=== PATIENT | female | born 1990 | race Caucasian/White ===

== ENCOUNTER 2018-05-31 16:15 | Emergency (ER) | payer BC, OTHER, SELFPAY ==
--- OUTSIDE RECORDS SUMMARY | 2018-05-31 16:17 | XMS REPORT | Summary of Care ---
:1990 Author Name Rekha Stone Address Unavailable Unavailable , Care Team Providers Name Role Phone Rekha Stone Unavailable Unavailable Functional Status Name Dates Details Functional status health issues are not documented Status: Name Dates Details Cognitive status health issues are not documented Status: Problems Name Dates Details Pain of left hand (729.5, M79.642) Status: Active Closed displaced fracture of shaft of fifth metacarpal bone of left hand, initial encounter (815.03, S62.327A) Status: Active Sprain of left wrist, initial encounter (842.00, S63.502A) Status: Active Closed fracture of pelvis and anterior inferior iliac spine, right, initial encounter (808.41, S32.391A) Status: Active Medications Name Dates Details Medications not documented Allergies and Adverse Reactions Name Dates Details No Known Drug Allergies (Allergy) Status: Active Procedures Procedure Dates Details History of section Completed Immunization Name Dates Details Immunizations not documented Family History Name Dates Details Family history of hypertension (V17.49, Z82.49) Status: Active Family history of malignant neoplasm (V16.9, Z80.9) Status: Active Family history of arthritis (V17.7, Z82.61) Status: Active Name Dates Details Family history of hypertension (V17.49, Z82.49) Status: Active Family history of malignant neoplasm (V16.9, Z80.9) Status: Active Family history of arthritis (V17.7, Z82.61) Status: Active Social History Name Dates Details Unknown if ever smoked Vital Signs Date Test Result Details No Known Vitals to report Results Date Description Value Details Results not documented Plan of Care Name Dates Details Planned Observations Planned Goals not documented Instructions Name Dates Details Instructions not documented Encounters Appointment; WOODY JONES M.D. On: 26-Apr-2017 11:00 Encounter Diagnosis: Problem not documented Appointment; CARLA GLEASON P.A. On: 27-Apr-2017 8:00 Encounter Diagnosis: Problem not documented Appointment; WOODY JONES M.D. On: 03-May-2017 10:30 Encounter Diagnosis: Problem not documented Appointment; CARLINE VAZQUEZ M.D. On: 29-May-2017 11:00 Encounter Diagnosis: Problem not documented Appointment; WOODY JONES M.D. On: 31-May-2017 10:30 Encounter Diagnosis: Problem not documented
[2018-05-31 19:30] LABS: Absolute Lymphocytes (CBC) 1.5 K/uL (0.7-4.9); Absolute Monocytes 0.5 K/uL (0.1-1.3); Basophils % 0.6 % (0-1.3); Eosinophils % 0.7 % (0-4.4); Hematocrit 41.6 % (36.0-45.0); Lymphocytes % 21.4 % (15.3-44.8); MPV 8.2 fL (7.6-11.3); Monocytes % 7.6 % (3.3-12.3); RBC Red Blood Cell Count 4.72 M/uL (3.86-4.86)
[2018-05-31 19:35] LABS: BUN Blood Urea Nitrogen 8 mg/dL (7-18); Bicarbonate 28 mmol/L (21-32); Glucose Level 96 mg/dL (74-106); Potassium 3.5 mmol/L (3.5-5.1); Sodium Level 140 mmol/L (136-145)
[2018-05-31 20:07] LABS: Urine Blood NEGATIVE (NEG); Urine Glucose NEGATIVE (NEG); Urine Protein 1+ (NEG); Urine pH 7.5 (5.0-7.0)
--- NOTE | 2018-05-31 20:13 | ER ---
Nurse's Notes [facility] Name: Laura Feldman Age: 27 yrs Sex: Female : 1990 Arrival Date: 05/31/2018 Time: 16:17 Bed 24 Private MD: Diagnosis: Encounter for screening, unspecified Presentation: 05/31 16:30 Presenting complaint: Patient states: HTN 128/84, bilateral hand swelling, "pins and dm5 needles in my feet" x 3 days. Transition of care: patient was not received from another setting of care. Onset of symptoms was May 28, 2018. Care prior to arrival: None. 16:30 Method Of Arrival: Ambulatory dm5 16:30 Acuity: ELLI 3 dm5 18:30 Risk Assessment: Do you want to hurt yourself or someone else? Patient reports no ca1 desire to harm self or others. 18:30 Initial Sepsis Screen: Does the patient meet any 2 criteria? No. Patient's initial ca1 sepsis screen is negative. Does the patient have a suspected source of infection? No. Patient's initial sepsis screen is negative. Triage Assessment: 16:33 General: Appears in no apparent distress. comfortable, well developed, Behavior is dm5 calm, cooperative, appropriate for age. Pain: Denies pain. Neuro: Level of Consciousness is awake, alert, obeys commands, Oriented to person, place, time, situation, Gait is steady. Respiratory: Respiratory effort is even, unlabored, Respiratory pattern is regular, symmetrical. Derm: Skin is pink, warm \\T\\ dry. 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 - Social history:: Smoking status: Patient/guardian denies using tobacco. - Ebola Screening: : No symptoms or risks identified at this time. Screenin:20 Abuse screen: Denies threats or abuse. Denies injuries from another. Nutritional ca1 screening: No deficits noted. Tuberculosis screening: No symptoms or risk factors identified. Fall Risk None identified. Assessment: 18:20 General: Appears in no apparent distress. comfortable, Behavior is calm, cooperative, ca1 appropriate for age. Pain: Denies pain. Neuro: Level of Consciousness is awake, alert, obeys commands, Oriented to person, place, time, situation. Cardiovascular: Heart tones S1 S2 present Capillary refill < 3 seconds Patient's skin is warm and dry. Respiratory: Airway is patent Respiratory effort is even, unlabored, Respiratory pattern is regular, symmetrical, Breath sounds are clear bilaterally. GI: Abdomen is flat, non-distended, Bowel sounds present X 4 quads. GI: Abd is soft and non tender X 4 quads. : No signs and/or symptoms were reported regarding the genitourinary system. EENT: No signs and/or symptoms were reported regarding the EENT system. Derm: Skin is intact, is healthy with good turgor, Skin is pink, warm \\T\\ dry. Musculoskeletal: Circulation, motion, and sensation intact. Capillary refill < 3 seconds. 19:24 Reassessment: Patient appears in no apparent distress at this time. Patient and/or ca1 family updated on plan of care and expected duration. Pain level reassessed. Patient is alert, oriented x 3, equal unlabored respirations, skin warm/dry/pink. Vital Signs: 16:32 BP 141 / 89; Pulse 84; Resp 16; Temp 98.6; Pulse Ox 98% ; Weight 49.9 kg; Height 5 ft. dm5 5 in. (165.10 cm); Pain 0/10; 19:24 BP 106 / 74; Pulse 87; Resp 18; Pulse Ox 100% on R/A; ca1 16:32 Body Mass Index 18.30 (49.90 kg, 165.10 cm) dm5 ED Course: 16:17 Patient arrived in ED. as 16:30 Triage completed. dm5 16:32 Arm band placed on Patient placed in waiting room, Patient notified of wait time. dm5 18:15 Adam Pitts PA is PHCP. cp 18:15 Adam Barney MD is Attending Physician. cp 18:20 Patient has correct armband on for positive identification. Bed in low position. Call ca1 light in reach. Side rails up X 1. Pulse ox on. NIBP on. 18:33 Morelia Velazquez, RN is Primary Nurse. ca1 19:11 Missed attempt(s): 22 gauge in right antecubital area. lt1 19:11 Inserted saline lock: 22 gauge in left antecubital area, using aseptic technique. lt1 19:12 Initial lab(s) drawn, by me, sent to lab. lt1 20:22 No provider procedures requiring assistance completed. IV discontinued, intact, mg2 bleeding controlled, No redness/swelling at site. Pressure dressing applied. Administered Medications: No medications were administered Outcome: 20:12 Discharge ordered by MD. cp 20:22 Discharged to home ambulatory, with family. mg2 20:22 Condition: stable 20:22 Discharge instructions given to patient, Instructed on discharge instructions, follow up and referral plans. Demonstrated understanding of instructions, follow-up care. 20:23 Patient left the ED. mg2 Signatures: Donna Saldivar RN RN dm5 Katy Louis Corey, PA PA cp Zeke Aldridge RN RN mg2 Morelia Velazquez RN RN ca1 Rosalina Kenyon lt1 Corrections: (The following items were deleted from the chart) 16:32 16:30 Presenting complaint: Patient states: HTN, bilateral hand swelling, "pins and dm5 needles in my feet" x 3 days. dm5
--- NOTE | 2018-05-31 20:13 | EDPHYS ---
Physician Documentation [facility] Name: Laura Feldman Age: 27 yrs Sex: Female : 1990 Arrival Date: 05/31/2018 Time: 16:17 Bed 24 Private MD: ED Physician Adam Barney HPI: 05/31 19:00 This 27 yrs old Female presents to ER via Ambulatory with complaints of High cp Blood Pressure, Hand Swelling. 19:00 The patient or guardian complains of swelling, sensation of "pins and needles". The cp complaints affect the right hand, left hand. Context: resulted from unknown cause. 19:00 Onset: The symptoms/episode began/occurred 3 day(s) ago. cp 19:00 Treatment prior to arrival includes: no previous treatment. Associated signs and cp symptoms: Pertinent negatives: decreased range of motion, fever, pain, vomiting, injury. Severity of symptoms: in the emergency department the symptoms have improved, mildly. 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 - Social history:: Smoking status: Patient/guardian denies using tobacco. - Ebola Screening: : No symptoms or risks identified at this time. ROS: 19:05 Constitutional: Negative for body aches, chills, fever, poor PO intake. cp 19:05 Eyes: Negative for injury, pain, redness, and discharge. cp 19:05 ENT: Negative for drainage from ear(s), ear pain, sore throat, difficulty swallowing, difficulty handling secretions. 19:05 Neck: Negative for pain with movement, pain at rest, stiffness. 19:05 Cardiovascular: Negative for chest pain, edema, palpitations. 19:05 Respiratory: Negative for cough, shortness of breath, wheezing. 19:05 Abdomen/GI: Negative for abdominal pain, nausea, vomiting, and diarrhea, constipation, black/tarry stool, rectal bleeding. 19:05 Back: Negative for pain at rest, pain with movement. 19:05 : Negative for urinary symptoms. 19:05 MS/extremity: Positive for swelling, of the right hand and left hand, sensation of "pin and needles", Negative for injury or acute deformity, decreased range of motion, erythema, paresthesias. 19:05 Skin: Negative for cellulitis, rash. 19:05 Neuro: Negative for altered mental status, dizziness, headache, numbness, weakness. 19:05 All other systems are negative. Exam: 19:12 Constitutional: The patient appears in no acute distress, alert, awake, non-toxic, well cp developed, well nourished. 19:12 Head/Face: Normocephalic, atraumatic. cp 19:12 Eyes: Periorbital structures: appear normal, Conjunctiva: normal, no exudate, no injection, Sclera: no appreciated abnormality, Lids and lashes: appear normal, bilaterally. 19:12 ENT: External ear(s): are unremarkable, Nose: is normal, Mouth: Lips: moist, Oral mucosa: pink and intact, moist, Posterior pharynx: is normal, airway is patent, no erythema, no exudate. 19:12 Neck: ROM/movement: is normal, is supple, without pain, no range of motions limitations, no meningismus, no nuchal rigidity. 19:12 Chest/axilla: Inspection: normal, Palpation: is normal, no crepitus, no tenderness. 19:12 Cardiovascular: Rate: normal, Rhythm: regular, Pulses: Pulses are 2+ in right radial artery and left radial artery. 19:12 Respiratory: the patient does not display signs of respiratory distress, Respirations: normal, no use of accessory muscles, no retractions, no splinting, no tachypnea, labored breathing, is not present, Breath sounds: are clear throughout, no decreased breath sounds, no stridor, no wheezing. 19:12 Abdomen/GI: Inspection: abdomen appears normal, Palpation: abdomen is soft and non-tender, in all quadrants. 19:12 Back: pain, is absent, ROM is normal. 19:12 Skin: cellulitis, is not appreciated, no rash present. 19:12 Neuro: Orientation: to person, place \\T\\ time. Mentation: is normal, Cerebellar function: is grossly normal, Motor: moves all fours, strength is normal, Sensation: no obvious gross deficits. 19:12 Musculoskeletal/extremity: Extremities: all appear grossly normal, with no appreciated cp pain with palpation. Vital Signs: 16:32 BP 141 / 89; Pulse 84; Resp 16; Temp 98.6; Pulse Ox 98% ; Weight 49.9 kg; Height 5 ft. dm5 5 in. (165.10 cm); Pain 0/10; 19:24 BP 106 / 74; Pulse 87; Resp 18; Pulse Ox 100% on R/A; ca1 16:32 Body Mass Index 18.30 (49.90 kg, 165.10 cm) dm5 MDM: 18:15 Patient medically screened. cp 19:35 Differential diagnosis: electrolyte abnormality, paresthesias. cp 20:11 Data reviewed: vital signs, nurses notes, lab test result(s), and as a result, I will cp discharge patient. 20:11 Counseling: I had a detailed discussion with the patient and/or guardian regarding: the cp historical points, exam findings, and any diagnostic results supporting the discharge/admit diagnosis, lab results, to return to the emergency department if symptoms worsen or persist or if there are any questions or concerns that arise at home. 05/31 18:42 Order name: BMP; Complete Time: 20:09 cp 05/31 18:42 Order name: CBC with Diff; Complete Time: 20:09 cp 05/31 18:42 Order name: Urine Dipstick-Ancillary (obtain specimen); Complete Time: 19:32 cp 05/31 18:42 Order name: Urine Test (obtain specimen); Complete Time: 19:32 cp 05/31 19:34 Order name: Urine Dipstick--Ancillary (enter results); Complete Time: 20:09 vt5 05/31 19:34 Order name: Urine --Ancillary (enter results); Complete Time: 20:09 [facility] 05/31 18:50 Order name: IV Saline Lock; Complete Time: 19:13 ca1 Administered Medications: No medications were administered Disposition: 05/31/18 20:12 Discharged to Home. Impression: Encounter for screening, unspecified. - Condition is Stable. - Medication Reconciliation Form, Thank You Letter, Antibiotic Education, Prescription Opioid Use form. - Follow up: Private Physician; When: 2 - 3 days; Reason: Recheck today's complaints. - Problem is new. - Symptoms have improved. Addendum: 06/03/2018 09:05 Co-signature as Attending Physician, Adam Barney MD I agree with the assessment and c cary plan of care. Signatures: Dispatcher [employer] Donna Kumar RN RN dm5 Adam Barney MD MD cha Page, Corey, MIKALA PA cp Zeke Aldridge RN RN mg2 Morelia Velazquez RN RN ca1 Corrections: (The following items were deleted from the chart) 05/31 20:23 20:12 05/31/2018 20:12 Discharged to Home. Impression: Encounter for screening, mg2 unspecified. Condition is Stable. Forms are Medication Reconciliation Form, Thank You Letter, Antibiotic Education, Prescription Opioid Use. Follow up: Private Physician; When: 2 - 3 days; Reason: Recheck today's complaints. Problem is new. Symptoms have improved. cp
[2018-05-31 21:08] VITALS: TEMP 98.6
[2018-05-31 21:10] VITALS: BP 106/74; O2SAT 100
== END 2018-05-31 20:23 | disposition home or self-care (01) ==
LOC: ER 16:15
DX: Z13.9 Encounter for screening, unspecified (principal)
CPT/HCPCS: 36415; 80048; 81003; 81025; 85025; 99283

== ENCOUNTER 2019-05-30 18:03 | Emergency (ER) | payer OTHER ==
--- OUTSIDE RECORDS SUMMARY | 2019-05-30 18:05 | XMS REPORT | Summary of Care ---
:1990 Author Name NIDA WHITESIDE M.D. Address Unavailable Unavailable , Care Team Providers Name Role Phone Unavailable Unavailable Unavailable Functional Status Name Dates Details [...] Encounter Diagnosis: Problem not documented Appointment; CARLA GELASON P.A. On: 27-Apr-2017 8:00 Encounter Diagnosis: Problem not documented Appointment; WOODY JONES M.D. On: 03-May-2017 10:30 Encounter Diagnosis: Problem not documented Appointment; CARLINE VAZQUEZ M.D. On: 29-May-2017 11:00 Encounter Diagnosis: Problem not documented Appointment; WOODY JONES M.D. On: 31-May-2017 10:30 Encounter Diagnosis: Problem not documented
[2019-05-30 19:11] LABS: Urine Blood NEGATIVE (NEG); Urine Glucose NEGATIVE (NEG); Urine Protein NEGATIVE (NEG)
--- NOTE | 2019-05-30 19:24 | ER ---
Nurse's Notes [facility] Name: Laura Feldman Age: 28 yrs Sex: Female : 1990 Arrival Date: 05/30/2019 Time: 18:13 Bed 27 Private MD: Diagnosis: Urinary tract infection, site not specified Presentation: 05/30 18:20 Presenting complaint: Patient states: Burning urination for the past 3 days. Denies aj1 fever. Transition of care: patient was not received from another setting of care. Onset of symptoms was May 2019. Risk Assessment: Do you want to hurt yourself or someone else? Patient reports no desire to harm self or others. Initial Sepsis Screen: Does the patient meet any 2 criteria? No. Patient's initial sepsis screen is negative. Does the patient have a suspected source of infection? Yes: Dysuria/Frequency/Urgency/UTI. Care prior to arrival: None. 18:20 Method Of Arrival: Ambulatory aj1 18:20 Acuity: ELLI 4 aj1 Triage Assessment: 18:22 General: Appears in no apparent distress. comfortable, Behavior is calm, cooperative, aj1 appropriate for age. Pain: Denies pain. Neuro: Level of Consciousness is awake, alert, obeys commands. Cardiovascular: Patient's skin is warm and dry. Respiratory: Airway is patent Respiratory effort is even, unlabored, Respiratory pattern is regular, symmetrical. GI:. : Reports burning with urination. 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 - Coronavirus screen:: The patient has NOT traveled to [place], [place], or [place] in the past 14 days. - Social history:: Smoking status: Patient/guardian denies using tobacco. - Ebola Screening: : Patient denies travel to an Ebola-affected area in the 21 days before illness onset. Screenin:25 Abuse screen: Denies threats or abuse. Nutritional screening: No deficits noted. vc Tuberculosis screening: No symptoms or risk factors identified. Fall Risk None identified. Assessment: 18:30 General: Appears in no apparent distress. uncomfortable, Behavior is calm, cooperative, vc appropriate for age. Pain: Complains of pain in lower back and lower abdominal. Neuro: Level of Consciousness is awake, alert, obeys commands, Oriented to person, place, time. Cardiovascular: Patient's skin is warm and dry. Respiratory: Respiratory effort is even, unlabored, Respiratory pattern is regular, symmetrical. GI: No signs and/or symptoms were reported involving the gastrointestinal system. : Reports burning with urination. EENT: No deficits noted. Derm: Skin temperature is warm. Musculoskeletal: Circulation, motion, and sensation intact. Range of motion: intact in all extremities. 19:30 Reassessment: Patient and/or family updated on plan of care and expected duration. Pain vc level reassessed. Patient is alert, oriented x 3, equal unlabored respirations, skin warm/dry/pink. Patient states symptoms have improved. Vital Signs: 18:22 BP 126 / 83; Pulse 73; Resp 16; Temp 98.3; Pulse Ox 100% on R/A; Weight 49.9 kg (R); aj1 Height 5 ft. 5 in. (165.10 cm) (R); Pain 0/10; 18:22 Body Mass Index 18.30 (49.90 kg, 165.10 cm) aj1 ED Course: 18:13 Patient arrived in ED. as 18:22 Triage completed. aj1 18:22 Arm band placed on Patient placed in waiting room, Patient notified of wait time. aj1 18:25 Patient has correct armband on for positive identification. Bed in low position. Call vc light in reach. 18:42 Neftali Finley PA is PHCP. [facility] 18:42 Kim Dave MD is Attending Physician. [facility] 18:49 Radha Padgett, GERARDO is Primary Nurse. vc 19:40 No provider procedures requiring assistance completed. Patient did not have IV access vc during this emergency room visit. Administered Medications: No medications were administered Outcome: 18:40 Discharged to home ambulatory, with family. vc 18:40 Condition: good 18:40 Discharge instructions given to patient, Instructed on discharge instructions, follow up and referral plans. medication usage, Demonstrated understanding of instructions, follow-up care, medications, Prescriptions given X 1. 19:23 Discharge ordered by MD. [place] 19:43 Patient left the ED. vc Addendum: 06/01/2019 07:33 Addendum: Culture Results: Positive urine culture. No further action required. Bacteria e b sensitive to prescribed antibiotic. Signatures: Pauline Brown RN RN aj1 Neftali Finley PA PA jmm Martinez, Amelia as Botello, Elizabeth eb Calcote, Vanessa, RN RN vc
--- NOTE | 2019-05-30 19:24 | EDPHYS ---
Physician Documentation [facility] Name: Laura Feldman Age: 28 yrs Sex: Female : 1990 Arrival Date: 05/30/2019 Time: 18:13 Bed 27 Private MD: ED Physician Kim Dave HPI: 05/30 19:20 This 28 yrs old Female presents to ER via Ambulatory with complaints of jmm Urinary Problem. 19:20 The patient presents with urinary symptoms, dysuria, frequency. Onset: The jmm symptoms/episode began/occurred gradually, 3 day(s) ago. Modifying factors: The symptoms are alleviated by nothing, the symptoms are aggravated by nothing. Associated signs and symptoms: Pertinent positives: cramping, Pertinent negatives: diarrhea, fever, vomiting. 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 - Coronavirus screen:: The patient has NOT traveled to [place], [place], or [place] in the past 14 days. - Social history:: Smoking status: Patient/guardian denies using tobacco. - Ebola Screening: : Patient denies travel to an Ebola-affected area in the 21 days before illness onset. ROS: 19:20 Constitutional: Negative for fever, chills, and weight loss, Eyes: Negative for injury, jmm pain, redness, and discharge, ENT: Negative for injury, pain, and discharge, Cardiovascular: Negative for chest pain, palpitations, and edema, Respiratory: Negative for shortness of breath, cough, wheezing, and pleuritic chest pain, Abdomen/GI: Negative for abdominal pain, nausea, vomiting, diarrhea, and constipation. 19:20 : Positive for urinary symptoms. 19:20 All other systems are negative. Exam: 19:20 Constitutional: This is a well developed, well nourished patient who is awake, alert, jmm and in no acute distress. Head/Face: atraumatic. Eyes: EOMI, no conjunctival erythema appreciated ENT: Moist Mucus Membranes Neck: Trachea midline, Supple Chest/axilla: Normal chest wall appearance and motion. Cardiovascular: Regular rate and rhythm. No edema appreciated Respiratory: Normal respirations, no respiratory distress appreciated 19:20 Skin: General appearance color normal MS/ Extremity: Moves all extremities, no obvious deformities appreciated, no edema noted to the lower extremities Neuro: Awake and alert, normal gait Psych: Behavior is normal, Mood is normal, Patient is cooperative and pleasant 19:20 Abdomen/GI: Inspection: abdomen appears normal, Bowel sounds: normal, Palpation: abdomen is soft and non-tender. 19:20 Back: CVA tenderness, is absent. Vital Signs: 18:22 BP 126 / 83; Pulse 73; Resp 16; Temp 98.3; Pulse Ox 100% on R/A; Weight 49.9 kg (R); aj1 Height 5 ft. 5 in. (165.10 cm) (R); Pain 0/10; 18:22 Body Mass Index 18.30 (49.90 kg, 165.10 cm) aj1 MDM: 19:07 Patient medically screened. can 19:18 Data reviewed: vital signs, nurses notes. can 19:21 Data reviewed: lab test result(s). Counseling: I had a detailed discussion with the [facility] patient and/or guardian regarding: the historical points, exam findings, and any diagnostic results supporting the discharge/admit diagnosis, lab results, the need for outpatient follow up, to return to the emergency department if symptoms worsen or persist or if there are any questions or concerns that arise at home. ED course: Patient is alert and non toxic in appearance. No clinical signs of pyelonephrosis. patient given strict return precautions. patient understood and agrees with the plan of care. . 05/30 19:08 Order name: Urine Dipstick--Ancillary (enter results); Complete Time: 19:24 sp 05/30 19:08 Order name: Urine --Ancillary (enter results); Complete Time: 19:24 sp 05/30 19:15 Order name: Urine Culture bb 05/30 19:15 Order name: Urine Culture [facility] Administered Medications: No medications were administered Disposition: 05/30/19 19:23 Discharged to Home. Impression: Urinary tract infection, site not specified. - Condition is Stable. - Discharge Instructions: Urinary Tract Infection, Adult. - Prescriptions for Cephalexin 500 mg Oral Capsule - take 1 capsule by ORAL route every 12 hours for 10 days; 20 capsule. - Medication Reconciliation Form, Thank You Letter, Antibiotic Education, Prescription Opioid Use form. - Follow up: Private Physician; When: 2 - 3 days; Reason: Recheck today's complaints, Continuance of care, Re-evaluation by your physician. Addendum: 06/02/2019 18:53 Co-signature as Attending Physician, Kim Dave MD. m a2 Signatures: Dispatcher [employer] EDPauline Cantrell RN RN aj1 Neftali Finley PA PA jmm Alzahri, Mohammad, MD MD ma2 Radha Padgett RN RN vc Corrections: (The following items were deleted from the chart) 05/30 19:43 19:23 05/30/2019 19:23 Discharged to Home. Impression: Urinary tract infection, site vc not specified. Condition is Stable. Forms are Medication Reconciliation Form, Thank You Letter, Antibiotic Education, Prescription Opioid Use. Follow up: Private Physician; When: 2 - 3 days; Reason: Recheck today's complaints, Continuance of care, Re-evaluation by your physician. [facility]
[2019-05-30 19:50] VITALS: BP 126/83; TEMP 98.3; O2SAT 100
== END 2019-05-30 19:43 | disposition home or self-care (01) ==
LOC: ER 18:03
DX: N39.0 Urinary tract infection, site not specified (principal)
CPT/HCPCS: 81003; 81025; 87077; 87086; 87088; 87186; 99282

== ENCOUNTER 2020-04-23 16:15 | Emergency (ER) | payer OTHER ==
--- OUTSIDE RECORDS SUMMARY | 2020-04-23 16:17 | XMS REPORT | Summary of Care ---
:1990 Author Organization [facility] - [facility] Address [address] [place] [address] Care Team Providers Name Role Phone Pcp, Does Not Have A Primary Care Provider Encounter Details Date Type Department Care Team Description 03/11/2020 Letter (Out) [facility] Wally Message s Doctor Unassigned, No [address] [place] [address] [address] [facility] [phone] [place] [address] Allergies No Known Allergiesdocumented as of this encounter (statuses as of 03/11/2020) Medications Medication Sig Dispensed Refills Start Date End Date Status ferrous gluconate 325 Take 1 tablet by 30 tablet 6 01/06/2016 Active mg (37 mg iron) tablet mouth daily with breakfast. HYDROcodone-acetaminop Take 1 tablet by 50 tablet 0 02/17/2016 Active hen (NORCO) 10-325 mg mouth every 6 tablet (six) hours as needed for Pain (scale 1-3), Pain (scale 4-6) or Pain (scale 7-10). ibuprofen (MOTRIN) 800 Take 1 tablet by 60 tablet 0 02/17/2016 Active mg tablet mouth every 8 (eight) hours as needed for Pain (scale 1-3). documented as of this encounter (statuses as of 03/11/2020) Active Problems Problem Noted Date 37 weeks gestation of 02/14/2016 Encounter for sterilization 02/14/2016 Chlamydia infection affecting in third trime ster, antepartum 01/06/2016 E. coli pyelonephritis 01/06/2016 UTI (lower urinary tract infection) 01/04/2016 31 weeks gestation of 01/04/2016 Twin gestation in third trimester 01/04/2016 Threatened premature labor affecting , less t saba 37 weeks in 01/04/2016 third trimester, antepartum Pharyngitis 01/04/2016 Low weight gain during in third trimester Anemia affecting in third trimester 01/04/20 16 Hypokalemia 01/04/2016 Nausea 01/04/2016 documented as of this encounter (statuses as of 03/11/2020) Immunizations Name Administration Dates Next Due Influenza Virus Vaccine Quad IM 3+ YRS 02/17/2016 documented as of this encounter Social History Tobacco Use Types Packs/Day Years Used Date Never Assessed Sex Assigned at Date Recorded Not on file COVID-19 Exposure Response Date Recorded In the last month, have you been in contact with No / Unsure 03/11/2020 9:49 AM 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 documented as of this encounter Last Filed Vital Signs Not on filedocumented in this encounter Plan of Treatment Date Type Specialty Care Team Description 03/11/2020 Initial Obstetrics & Duran, Vicki Sellers MD Arrived Visit Gynecology [address] [place] [address] DR. Prajapati [place] [id number] [phone] Health Maintenance Due Date Last Done Comments VARICELLA VACCINES (1 of 2 - 1992 2-dose childhood series) Depression Screening 2003 DTaP,Tdap,and Td Vaccines (1 - 2010 Tdap) PAP SMEAR 2012 INFLUENZA VACCINE (#1) 2019 02/17/2016 PNEUMOCOCCAL 0-64 YEARS COMBINED Aged Out No longer eligible based on SERIES patient's age to complete this topic documented as of this encounter Results Not on filedocumented in this encounter Insurance Payer Benefit Plan / Subscriber ID Effective Dates Phone Addre ss Type Group [facility] [id number] 2019-Present Medicaid COMM PLAN - MANAGED MEDICAID documented as of this encounter
--- OUTSIDE RECORDS SUMMARY | 2020-04-23 16:17 | XMS REPORT | Summary of Care ---
:1990 Author Organization [facility] Address [address] [place] [id number] Care Team Providers Name Role Phone Pcp, Does Not Have A Primary Care Provider Reason for Visit Reason Comments Initial Visit Encounter Details Date Type Department Care Team Description 03/11/2020 Initial [facility] Women's Vicki Duran am, MD High-risk in first trimester ( Primary Dx); Visit Healthcare- [address] [place] [address] Missed men ses; Home ARAUJO examination or test, positive result; [address] [place] [address] [address] 8 weeks gestation of ; [address], [address] [place], [place] [id number] Allergies No Known Allergiesdocumented as of this encounter (statuses as of 03/11/2020) Medications Medication Sig Dispensed Refills Start Date End Date Status ferrous Take 1 30 tablet 6 01/06/2016 03/11/2020 Disconti nued gluconate 325 mg tablet by (Cristi ferrera Reported) (37 mg iron) mouth daily tablet with breakfast. HYDROcodone-acet Take 1 50 tablet 0 02/17/2016 03/11/2020 D iscontinued aminophen tablet by (Patient R eported) (NORCO) 10-325 mouth every mg tablet 6 (six) hours as needed for Pain (scale 1-3), Pain (scale 4-6) or Pain (scale 7-10). ibuprofen Take 1 60 tablet 0 02/17/2016 03/11/2020 Disconti nued (MOTRIN) 800 mg tablet by (Pat ient Reported) tablet mouth every 8 (eight) hours as needed for Pain (scale 1-3). documented as of this encounter (statuses as of 03/11/2020) Active Problems Problem Noted Date Previous section 03/11/2020 High-risk in first trimester 03/11/2020 Estimated Date of Delivery Comments Yes 10/18/2020 Based on last menstr ual period of 01/12/2020 (Exact Date) documented as of this encounter (statuses as of 03/11/2020) Resolved Problems Problem Noted Date Resolved Date 37 weeks gestation of 02/14/2016 03/11/20 20 Encounter for sterilization 02/14/2016 03/11/2020 Chlamydia infection affecting in third trimester, 01/06/2016 03/11/2020 antepartum E. coli pyelonephritis 01/06/2016 03/11/2020 UTI (lower urinary tract infection) 01/04/201602/21 31 weeks gestation of 01/04/2016 03/11/20 20 Twin gestation in third trimester 01/04/20162019 Threatened premature labor affecting , less than 37 01/04/2016 03/11/2020 weeks in third trimester, antepartum Pharyngitis 01/04/2016 03/11/2020 Low weight gain during in third trimester 01/04/20 16 03/11/2020 Anemia affecting in third trimester 01/04/2016 03/11/2020 Hypokalemia 01/04/2016 03/11/2020 Nausea 01/04/2016 03/11/2020 documented as of this encounter (statuses as of 03/11/2020) Immunizations Name Administration Dates Next Due Influenza Virus Vaccine Quad IM 3+ YRS 02/17/2016 documented as of this encounter Social History Tobacco Use Types Packs/Day Years Used Date Never Smoker Smokeless Tobacco: Never Used Alcohol Use Drinks/Week oz/Week Comments Not Currently Estimated Date of Delivery Comments Yes 10/18/2020 Based on last menstr ual period of 01/12/2020 (Exact Date) Sex Assigned at Date Recorded Not on file COVID-19 Exposure Response Date Recorded In the last month, have you been in contact with No / Unsure 03/11/2020 9:49 AM WASTE REDUCTION COORDINATOR someone who was confirmed or suspected to have Coronavirus / COVID-19? documented as of this encounter Last Filed Vital Signs Vital Sign Reading Time Taken Comments Blood Pressure 131/84 03/11/2020 10:21 AM WASTE REDUCTION COORDINATOR Pulse 83 03/11/2020 10:12 AM WASTE REDUCTION COORDINATOR Temperature 36.7 C (98.1 F) 03/11/2020 10:12 AM WASTE REDUCTION COORDINATOR Respiratory Rate 18 03/11/2020 10:12 AM WASTE REDUCTION COORDINATOR Oxygen Saturation - - Inhaled Oxygen Concentration - - Weight 54 kg (119 lb) 03/11/2020 10:12 AM WASTE REDUCTION COORDINATOR Height 165.1 cm (5' 5") 03/11/2020 10:12 AM WASTE REDUCTION COORDINATOR Body Mass Index 19.8 03/11/2020 10:12 AM WASTE REDUCTION COORDINATOR documented in this encounter Progress Notes Vicki Duran MD - 03/11/2020 10:00 AM CST Chief complaint: Chief Complaint Patient presents with Initial Visit HPI Laura Feldman is a 29 year old female @ 8w3d by LMP. Here for new OB visit. Patient's last menstrual period was 01/12/2020 (exact date). denies vaginal bleeding. +cramping. Patient reports not yet taking PNV patient reports she will get them OTC Histories OB History Para Term AB Living 5 4 4 0 5 SAB TAB Ectopic Multiple Live Births 1 5 # Outcome Date GA Lbr Jose L/2nd Weight Sex Delivery Anes PTL Lv 5 Current 4A Term 02/15/16 37w3d 4 lb 11.5 oz (2.14 kg) M SEC Spinal FEI 4B Term 02/15/16 37w3d 5 lb 12 oz (2.608 kg) F Spinal FEI 3 Term 09/09/14 5 lb (2.268 kg) CS-Unspec FEI Comments: subchronic hemorrhage at 10 wks 2 Term 06/02/12 7 lb 14 oz (3.572 kg) CS-Unspec FEI 1 Term 12/15/10 6 lb 15 oz (3.147 kg) CS-Unspec FEI Comments: hips didnt widen Past Medical History: Diagnosis Date Transfusion history 2015- before delivery and after Family History Problem Relation Age of Onset No Significant Medical Problems Mother No Significant Medical Problems Father Family Status Relation Name Status Mo Alive Fa Alive MGMo Alive MGFa PGMo Alive PGFa Past Surgical History: Procedure Laterality Date SECTION N/A 02/15/2016 Surgeon: Steve Dyer MD; Location: [facility] Delivery OR Location CHOLECYSTECTOMY TUBAL LIGATION Bilateral 02/15/2016 Surgeon: Steve Dyer MD; Location: [facility] Labor [facility] Delivery OR Location Social History Socioeconomic History Marital status: Single Spouse name: Not on file Number of children: Not on file Years of education: Not on file Highest education level: Not on file Occupational History Not on file Social Needs Financial resource strain: Not on file Food insecurity Worry: Not on file Inability: Not on file Transportation needs Medical: Not on file Non-medical: Not on file Tobacco Use Smoking status: Never Smoker Smokeless tobacco: Never Used Substance and Sexual Activity Alcohol use: Not Currently Drug use: Never Sexual activity: Yes Partners: Male Lifestyle Physical activity Days per week: Not on file Minutes per session: Not on file Stress: Not on file Relationships Social connections Talks on phone: Not on file Gets together: Not on file Attends rastafari service: Not on file Active member of club or organization: Not on file Attends meetings of clubs or organizations: Not on file Relationship status: Not on file Intimate partner violence Fear of current or ex partner: Not on file Emotionally abused: Not on file Physically abused: Not on file Forced sexual activity: Not on file Other Topics Concern Not on file Social History Narrative Denies physical and sexual abuse. Lives in house with partner and 5 kids Social History Substance and Sexual Activity Sexual Activity Yes Partners: Male Genetic Screen Autism / Mental Retardation: No Irvin Disease: No Congenital Heart Defect: No Cystic Fibrosis: No Down Syndrome: No Familial Dysautonomia: No Hemophilia or other Blood Disorders: No Margaux Chorea: No Maternal Metabolic Disorder--specify (eg. Type 1 Diabetes, PKU): No Muscular Dystrophy: No Neural Tube Defect: No Recurrent Loss or a Stillbirth: No Sickle Cell Disease or Trait: No Prasad Sachs: No Teratological Substances (specify type & strength/dose) since LMP: No Thalassemia: No Other Inherited Genetic or Chromosomal Disorder (specify): No No Significant History of Genetic Disorders: No Significant History of Genetic Disorders Labs No new labs Radiology No new radiology. Allergies Laura has No Known Allergies. Medications Laura currently has no medications in their medication list. Review of Systems Constitutional: Negative for chills, fatigue and fever. HENT: Negative for congestion, rhinorrhea, sneezing and sore throat. Respiratory: Negative for cough, chest tightness, shortness of breath and wheezing. Breasts: Negative for discharge, mass, pain and unequal size. Cardiovascular: Negative for chest pain and palpitations. Gastrointestinal: Negative for abdominal distention, abdominal pain, anal bleeding, blood in stool, constipation, diarrhea, nausea and vomiting. Genitourinary: Negative for dysuria, urgency, frequency, vaginal bleeding and vaginal discharge. Musculoskeletal: Negative for gait problem. Skin: Negative for rash. Neurological: Negative for syncope, light-headedness and headaches. Psychiatric/Behavioral: Negative for dysphoric mood, self-injury and suicidal ideas. Hematological: Negative for cold intolerance and heat intolerance. Does not bruise/bleed easily. Endocrine: Negative for cold intolerance and heat intolerance. BP 131/84 (BP Location: Right arm, Patient Position: Sitting, BP CUFF SIZE: Adult Medium) | Pulse 83 | Temp 36.7 C (98.1 F) (Oral) | Resp 18 | Ht 5' 5" (1.651 m) | Wt 119 lb (54 kg) | LMP 01/12/2020 (Exact Date) | BMI 19.80 kg/m Pregravid BMI: 18.31 Physical Exam Vitals reviewed. Constitutional: She is oriented to person, place, and time. Her body habitus is normal. Neck: No mass. No thyromegaly palpated. Cardiovascular: Regular rate and rhythm. Pulmonary/Chest: Breath sounds clear to auscultation. Normal inspiratory effort. Abdominal: Abdomen is soft. No tenderness present. No hernia palpated or inspected. Surgical scar Neuro/Psychiatric: She has a normal mood and affect. She is oriented to person, place, and time. Skin: Skin normal. No rash present. Lymphadenopathy: No axillary adenopathy present. No inguinal adenopathy present. Breast: Right breast exhibits no mass, no nipple discharge and no tenderness. Left breast exhibits no mass, no nipple discharge and no tenderness. Breasts are symmetrical. External genitalia: Normal external genitalia appropriate for age. Normal hair distribution. No labial lesion. Urethral meatus: Normal urethral meatus Urethra: Normal urethra. Bladder: Normal bladder Vagina:Normal vagina. Cervix: Normal cervix. No lesion. No tenderness and no discharge present. Uterus: Uterus is normal size and non-tender. Adnexa: Right adnexa without tenderness or mass. Left adnexa without tenderness or mass. Anus/perineum: Normal perineum and normal anus. Assessment/Plan See OB Summary Return to clinic in 4 weeks. Discussed treatment options. Medications as ordered. Reviewed patient instructions and provided printed copy. Activity restrictions: As tolerated at 8w3d This visit did not involve counseling and coordination that comprised more than 50% of the visit time. Scribe's Attestation IAbel , am scribing for, and in the presence of, Vicki Duran MD who performed the services described here-in. Abel Wood, March 11, 2020, 10:45 AM Physician's Attestation I have seen and examined the patient and agreed with the note above Vicki Duran MD 03/11/2020 4:31 PM documented in this encounter Miscellaneous Notes OB Summary Note - Abel Wood - 03/11/2020 10:00 AM CST Age: [age] year old GA: 8w3d Doing well, no complaints MPDPS - Patient was supposed to have BTL with last but was not completed as unable to access thetubes during repeat CD done here at [facility]. Op note in EMR reviewed and "Because of massive adhesions the tubal ligation was not done." - Patient desires BTL; will sign consents around 24-28 weeks - Discussed that I am likely will also be unable to complete her BTL given her "massive adhesions" noted on her last surgery - Discussed possibly doing an interval laparoscopic BTL versus hormone contraception versus vasectomy. Patient states that partner declined vasectomy. Patient denies abnormal pap hx LMP was 01/12/2020 Previous CD X 4 - "massive adhesions noted at last " in 2016. See EMR for more details. - discussed about risks of abnormal placentation and will re-assess if patient is a candidate to be delivered in [place]. Patient understands. Hx of blood transfusion in 2016 - Today USG: Single live IUP measured 8 3/7 weeks, consistent with LMP. Will date by LMP unless clinically indicated otherwise New OB labs today. No complaints. Discussed do's and don'ts of , safe foods, safe medications. Reviewed Zika virus precautions. I discussed the call schedule and that I might not be the physician delivering her. Expectations for weight gain this include 25-35 pounds. Encouraged to call if have any additional questions or concerns. Discussed aneuploidy and carrier screening; cristi ferrera opts for panorama. Discussed about COVID-19/flu precautions. Social distancing, frequent hand washings, wearing face mask, signs/symptoms for testing and to follow CDC recommendations discussed. Discussed with patient that we recommend covid testing to be done ~ one day prior to scheduled induction/ and she can have one HEALTHY support with her during her delivery if she does not haveCOVID. Also discussed that she and support person need to wear mask the entire inpatient stay. Allquestions were answered. RTC in 4 weeks for PN visit Scribe's Attestation Abel Dugan am scribing for, and in the presence of, Vicki Durna MD who performed the services described here-in. Abel Wood, March 11, 2020, 10:37 AM Physician's Attestation I have seen and examined the patient and agreed with the note above Vicki Duran MD 03/11/2020 4:25 PM documented in this encounter Plan of Treatment Date Type Specialty Care Team Description 03/23/2020 Flying Instructor Visit Phlebotomy 2, Adc Lab 04/08/2020 Routine Visit Obstetrics & Vicki Duran MD Gynecology [address] [place] [address] DR. Praj[address]ati [place], [place] [address] [phone] Name Type Priority Associated Diagnoses Order S chedule ADC / [facility] - DRUG SCREEN LAB Routine examina tion or Ordered: 03/11/2020 TRIAGE test, positive result GC & CHLAMYDIA AMPLIFIED LAB Routine examin ation or Ordered: 03/11/2020 ASSAY test, positive result PAP Smear-Liquid Based LAB Routine examinat ion or Expected: 03/11/2020, test, positive result s: 03/11/2021 ADC OR [place] ONLY - LAB Routine examinati on or Expected: 03/11/2020, RPR test, positive r esult Expires: 06/11/2020 8 weeks gestation of CBC WITH DIFF LAB Routine examination or Ex pected: 03/11/2020, test, positive r esult Expires: 06/11/2020 8 weeks gestation of GLUCOSE 1 HOUR POST LAB Routine examination or Expected: 03/11/2020, PRANDIAL test, positive r esult Expires: 06/11/2020 8 weeks gestation of HCV ANTIBODY LAB Routine examination or Exp ected: 03/11/2020, test, positive r esult Expires: 06/11/2020 8 weeks gestation of HEPATITIS B SURFACE LAB Routine examination or Expected: 03/11/2020, ANTIGEN test, positive r esult Expires: 06/11/2020 8 weeks gestation of HIV 1/2 AG-AB WITH LAB Routine examination or Expected: 03/11/2020, REFLEX test, positive r esult Expires: 03/11/2021 8 weeks gestation of WORKUP, BLOOD LAB Routine examinat ion or Expected: 03/11/2020, BANK test, positive r esult Expires: 06/11/2020 8 weeks gestation of URINE CULTURE LAB Routine examination or Ex pected: 03/11/2020, test, positive r esult Expires: 06/11/2020 8 weeks gestation of VZV ANTIBODY SCREEN LAB Routine examination or Expected: 03/11/2020, test, positive r esult Expires: 06/11/2020 8 weeks gestation of RUBELLA SCREEN IGG LAB Routine examination or Expected: 03/11/2020, test, positive r esult Expires: 06/11/2020 8 weeks gestation of Health Maintenance Due Date Last Done Comments VARICELLA VACCINES (1 of 2 - 1992 2-dose childhood series) Depression Screening 2003 DTaP,Tdap,and Td Vaccines (1 - 2010 Tdap) PAP SMEAR 2012 INFLUENZA VACCINE (#1) 2019 02/17/2016 PNEUMOCOCCAL 0-64 YEARS COMBINED Aged Out No longer eligible based on SERIES patient's age to complete this topic documented as of this encounter Procedures Procedure Name Priority Date/Time Associated Diagnosis Comme nts <14 WEEKS US Routine 03/11/2020 2:23 8 weeks gestation of Res ults for this LIMITED PM WASTE REDUCTION COORDINATOR procedure are in High-risk the resu lts in first trimester section. POCT URINALYSIS W/O Routine 03/11/2020 Results for this SPECIFIC GRAVITY examination or test, pro cedure are in positive result the results section. POCT TEST Routine 03/11/2020 Missed menses Results for this procedure are i n the results section. documented in this encounter Results <14 WEEKS US LIMITED (03/11/2020 2:23 PM WASTE REDUCTION COORDINATOR) Specimen Narrative Performed At This result has an attachment that is no t available. - Limited USG for FHT: Single live IUP measured 8 3/7 weeks, consistent PACS with LMP. Will date by LMP unless clinically indicat ed otherwise Vicki Duran MD 03/11/2020 2:24 PM Performing Organization Address [facility] PACS POCT TEST (03/11/2020) Pathologist Sig nature POCT PREG Positive On board controls acceptable Yes with C Line POCT PREG LOT # POCT PREG TEST DATE Specimen Urine - URINE, CLEAN CATCH POCT URINALYSIS W/O SPECIFIC GRAVITY (03/11/2020) Pathologist Sig nature POCT PH U N/A 5 - 8 mg/dl POCT U LEUK EST N/A Negative - Negative POCT U NIT N/A Negative - Negative POCT U PROT Negative Negative - Negative POCT U GLU Negative Negative - Negative POCT U KETONE N/A Negative - Negative POCT U BLD N/A Negative - Negative Specimen Urine - URINE, CLEAN CATCH documented in this encounter Visit Diagnoses Diagnosis High-risk in first trimester - Primary Missed menses Absence of menstruation examination or test, positive result 8 weeks gestation of state, incidental Previous section Other postprocedural status documented in this encounter Insurance Payer Benefit Plan / Subscriber ID Effective Dates Phone Addre ss Type Group [facility] [id number] 2019-Present Medicaid COMM PLAN - MANAGED MEDICAID documented as of this encounter
--- OUTSIDE RECORDS SUMMARY | 2020-04-23 16:17 | XMS REPORT | Summary of Care ---
:1990 Author Organization [facility] Address [address] [place] [id number] Care Team Providers Name Role Phone Pcp, Does Not Have A Primary Care Provider Reason for Visit Reason Comments LAB Encounter Details Date Type Department Care Team Description 03/23/2020 Residential Program Worker Visit [facility] Vicki Duran MD [address] [place] [address] [address] [place] [address] examination or test, positive result; Professional Office 2, Adc Lab 8 weeks gestation of Building Phlebotomy Lab Professional Office Building [address] [facility] , [address] [place] [address] Allergies No Known Allergiesdocumented as of this encounter (statuses as of 03/23/2020) Medications No known medicationsdocumented as of this encounter (statuses as of 03/23/2020) Active Problems Problem Noted Date Previous section 03/11/2020 High-risk in first trimester 03/11/2020 Estimated Date of Delivery Comments Yes 10/18/2020 Based on last menstr ual period of 01/12/2020 (Exact Date) documented as of this encounter (statuses as of 03/23/2020) Resolved Problems Problem Noted Date Resolved Date [...] as of this encounter (statuses as of 03/23/2020) Immunizations Name Administration Dates Next Due Influenza [...] been in contact with No / Unsure 03/23/2020 9:34 AM CHIEF 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 documented as of this encounter Last Filed Vital Signs Not on filedocumented in this encounter Nursing Notes Mary Beth Hickman - 03/23/2020 9:30 AM CST Venipuncture collection performed by clean technique on the right anticubitus. Total of 1 attempts were made. Slight pressure and a bandage/dressing were applied to the site(s). The patient experiencedno complications. The following specimens were processed according to instructions and sent to [facility] laboratories per lab order on 03/23/20: LT BLUE SST 4 RED 1 LAV 2 PPT DK GREEN (LiHep) DK GREEN (SodH) MITCHELL DK BLUE (K2) DK BLUE (S) ACD Blood Culture NIPT/NTD Patient has been identified by name and was provided with cup, antiseptic towelette, and clean catchinstructions. 1 urine specimen(s) sent. Unpreserved Urine Culture 1 Aptima tube Other urine documented in this encounter Plan of Treatment Date Type Specialty Care Team Description 04/08/2020 Routine Obstetrics & Duran, Vicki Sellers MD Visit Gynecology [address] [place] [address] DR. Praj[address]ati [place], [place] [address] [phone] Health Maintenance Due Date Last Done Comments [...] Results Not on filedocumented in this encounter Visit Diagnoses Diagnosis examination or test, positive result 8 weeks gestation of state, incidental documented in this encounter Insurance Payer Benefit Plan / Subscriber ID Effective Dates Phone Addre ss Type Group [facility] [id number] 2019-Present Medicaid COMM PLAN - MANAGED MEDICAID documented as of this encounter
--- OUTSIDE RECORDS SUMMARY | 2020-04-23 16:17 | XMS REPORT | Continuity of Care Document ---
:1990 Author Organization [facility] t Address [address] [place] [address] Care Team Providers Name Role Phone Faculty, Lillian Thomason Attending Clinician Unavailable ROBERT Attending Clinician Unavailable GEORGE Attending Clinician Unavailable VICTORINO Attending Clinician Unavailable Problems Condition Condition Condition Status Onset Resolution Last Treating Co mments Source Name Details Category Date Date Treatment Clinician Date Pain of Pain of Problem Active Univers left hand left hand ity of [place] Physici ans Closed Closed Problem Active Univers fracture fracture ity of [place] and Physici anterior anterior ans inferior inferior iliac iliac spine, spine, right, right, initial initial encounter encounter Closed Closed Problem Active Univers displaced displaced ity of fracture fracture [place] of shaft of shaft Physic i of fifth of fifth ans metacarpal metacarpal bone of bone of left hand, left hand, initial initial encounter encounter Sprain of Sprain of Problem Active Uni vers left left ity of wrist, wrist, [place] initial initial Physici encounter encounter ans Allergies, Adverse Reactions, Alerts This patient has no known allergies or adverse reactions. Family History Family Member Diagnosis Comments Start Date Stop Date Source Mother Family history of Univers ity of [place] hypertension Physicians Mother Family history of [facility] [place] malignant neoplasm Physic ians Mother Family history of [facility] [place] arthritis Physicians Father Family history of [facility] [place] hypertension Physicians Father Family history of [facility] [place] malignant neoplasm Physic ians Father Family history of [facility] [place] arthritis Physicians Medications This patient has no known medications. Procedures Procedure Date / Time Performed Performing Clinician Sourc e [U] XRAY HAND MIN 3 2017-05-28 00:00:00 [facility] [place] VWS LEFT [id number] Physicians [U] XRAY PELVIS MIN 3 2017-05-21 00:00:00 [facility] [place] VWS [id number] Physicians [U] XRAY HAND MIN 3 2017-04-30 00:00:00 [facility] [place] VWS LEFT [id number] Physicians [U] XRAY HAND MIN 3 2017-04-26 00:00:00 [facility] [place] VWS LEFT [id number] Physicians [U] XRAY PELVIS MIN 3 2017-04-26 00:00:00 [facility] [place] VWS 19602 Physicians [U] XR HAND MIN 3 VWS 2017-04-26 00:00:00 [facility]iver [facility] [place] BILATERAL Physicians History of University o f [place] section Physicians Encounters Start End Encounter Admission Attending Care Care Encounter Source Date/Time Date/Time Type Type Clinicians Facility Department ID 2020-04-19 2020-04-19 Office Faculty, [facility] [id number] 09:25:02 10:24:51 Visit [facility] TRAINING DEVELOPMENT MANAGER [id number] [facility] [id number] MATERNAL [id number] & CHILD [address] [place] [address] 2017-05-31 2017-05-31 Appoint[facility]OYD [facility] [id number] Univers 10:30:00 10:30:00 t; suad MCKAY [facility] Susan M.D. [place] Laura MCKAY M.D. ans 2017-05-29 2017-05-29 AppointCARLINE [facility] [id number] Univers 11:00:00 11:00:00 t; Raman VAZQUEZ M.D. [place] Laura ans 2017-05-03 2017-05-03 Appoint[facility]OYD [facility] [id number] Univers 10:30:00 10:30:00 t; suad MCKAY [facility] Susan M.D. [place] Laura MCKAY M.D. ans 2017-04-27 2017-04-27 AppointLLOYD Loo [id number] Univers 08:00:00 08:00:00 t; CARLA GLEASON P.A. [facility] Evans AGUIRRE ans 2017-04-26 2017-04-26 Appointmen [facility] [id number] Univers 11:00:00 11:00:00 kiana; WOODY at [facility] ity of Raman JONSE Physici M.D. ans Results Test Description Test Time Test Comments Results Result Sourc e Comments [U] XRAY HAND MIN 2017-05-03 Images Univers ity of 3 VWS LEFT [id number] 10:27:00 acquired, not [place] reported on Physicians this accession number. [U] XRAY PELVIS 2017-04-27 Images Universit y of MIN 3 VWS [id number] 08:39:00 acquired, not [place] reported on Physicians this accession number. [U] XRAY HAND MIN 2017-04-26 Images Univers ity of 3 VWS LEFT [id number] 10:46:00 acquired, not [place] reported on Physicians this accession number.
--- OUTSIDE RECORDS SUMMARY | 2020-04-23 16:18 | XMS REPORT | Summary of Care ---
:1990 Author Organization [facility] Address [address] [place] [id number] Care Team Providers Name Role Phone Pcp, Does Not Have A Primary Care Provider Reason for Visit Reason Comments LAB Encounter Details Date Type Department Care Team Description 03/23/2020 Kier Pleater Visit [facility] Vicki Duran MD [address] [place] [address] [address] [place] [address] examination or test, positive result; Professional Office 2, Adc Lab 8 weeks gestation of Building Phlebotomy Lab Professional Office Building [address] [facility] , [address] [place] [address] Allergies No Known Allergiesdocumented as of this encounter (statuses as of 03/26/2020) Medications No known medicationsdocumented as of this encounter (statuses as of 03/26/2020) Active Problems Problem Noted Date Previous section 03/11/2020 High-risk in first trimester 03/11/2020 Estimated Date of Delivery Comments Yes 10/18/2020 Based on last menstr ual period of 01/12/2020 (Exact Date) documented as of this encounter (statuses as of 03/26/2020) Resolved Problems Problem Noted Date Resolved Date [...] as of this encounter (statuses as of 03/26/2020) Immunizations Name Administration Dates Next Due Influenza [...] with No / Unsure 03/23/2020 9:34 AM COOKER OPERATOR someone who was confirmed or suspected to [...] processed according to instructions and sent to [facility] laboratories per lab order on 03/23/20: LT [...] tube Other urine documented in this encounter Miscellaneous Notes Addendum Note - Alexandria Reece MBCHB - 03/23/2020 9:30 AM COOKER OPERATOR Addended by: ALEXANDRIA REECE on: 03/26/2020 06:21 PM Modules accepted: Orders ER OPERATOR documented in this encounter Plan of Treatment Date Type Specialty Care Team Description 04/08/2020 Routine Obstetrics & Duran, Vicki Sellers MD Visit Gynecology [address] [place] [address] DR. Prajapati [place], [place] [address] [phone] Name Type Priority Associated Diagnoses Date/Ti me TRANSFUSION MEDICINE DMT LAB Routine examin ation or test, 03/23/2020 INTERP positive result Health Maintenance Due Date Last Done Comments Depression Screening 2003 DTaP,Tdap,and Td Vaccines (1 - 2010 Tdap) PAP SMEAR 2012 INFLUENZA VACCINE (#1) 2019 02/17/2016 PNEUMOCOCCAL 0-64 YEARS COMBINED Aged Out No longer eligible based on SERIES patient's age to complete this topic documented as of this encounter Procedures Procedure Name Priority Date/Time Associated Comments Diagnosis HIV 1/2 AG-AB WITH Routine 03/23/2020 10:40 Resul ts for this REFLEX AM COOKER OPERATOR examination or procedure are in test, positive the results result section. 8 weeks gestation of ADC OR [place] ONLY - Routine 03/23/2020 10:40 Re sults for this RPR AM COOKER OPERATOR examination or procedure are in test, positive the results result section. 8 weeks gestation of URINE CULTURE Routine 03/23/2020 10:40 Results fo r this AM COOKER OPERATOR examination or procedure are in test, positive the results result section. 8 weeks gestation of HCV ANTIBODY Routine 03/23/2020 10:40 Results for this AM COOKER OPERATOR examination or procedure are in test, positive the results result section. 8 weeks gestation of HEPATITIS B SURFACE Routine 03/23/2020 10:40 Resu lts for this ANTIGEN AM COOKER OPERATOR examination or procedure are in test, positive the results result section. 8 weeks gestation of VZV ANTIBODY SCREEN Routine 03/23/2020 10:40 Resu lts for this AM COOKER OPERATOR examination or procedure are in test, positive the results result section. 8 weeks gestation of RUBELLA SCREEN IGG Routine 03/23/2020 10:40 Resul ts for this AM COOKER OPERATOR examination or procedure are in test, positive the results result section. 8 weeks gestation of CBC WITH DIFF Routine 03/23/2020 10:40 Results fo r this AM COOKER OPERATOR examination or procedure are in test, positive the results result section. 8 weeks gestation of ANTIBODY TITER INTERPS Routine 03/23/2020 10:38 R esults for this AM COOKER OPERATOR procedure are i n the results section. HB ABO GROUPING Routine 03/23/2020 10:38 Results for this AM COOKER OPERATOR examination or procedure are in test, positive the results result section. 8 weeks gestation of PANEL IDENTIFICATION Routine 03/23/2020 10:38 Res ults for this AM COOKER OPERATOR procedure are i n the results section. ANTIGEN TYPING PATIENT Routine 03/23/2020 10:38 R esults for this AM COOKER OPERATOR procedure are i n the results section. GLUCOSE 1 HOUR POST Routine 03/23/2020 10:38 Resu lts for this PRANDIAL AM COOKER OPERATOR examination or procedure are in test, positive the results result section. 8 weeks gestation of documented in this encounter Results RUBELLA SCREEN IGG (03/23/2020 10:40 AM COOKER OPERATOR) Pathologist Sig nature Rubella screen IgG Negative Negative [facility] ES Specimen Blood Narrative Performed At Positive - Indicates the patient was exposed to Rubell a [facility] through infection or vaccination. Negative - Indicates the patient could be susceptible to Rubella infection. Equivocal - A second specimen should be sent. Performing Organization Address City/State/Zipcode Phone Number [facility] CLIA: [id number] [place], [place] [id number] [address] [place] [address] VZV ANTIBODY SCREEN (03/23/2020 10:40 AM COOKER OPERATOR) Pathologist Sig nature VZV IgG antibody Positive Negative [facility] Specimen Blood Narrative Performed At Positive - Indicates the patient was exposed to VZV th rough [facility] infection or vaccination. Negative - Indicates the patient could be susceptible to VZV infection. Equivocal - A second specimen should be sent for testi ng. Performing Organization Address City/State/Zipcode Phone Number [facility] CLIA: [id number] [place] [address] [phone] [address] [facility] URINE CULTURE (03/23/2020 10:40 AM COOKER OPERATOR) Pathologist Sig nature URINE CULTURE No aerobic growth [facility] (< 1000 CFU/mL) SERVICES Specimen Urine - URINE, CLEAN CATCH Performing Organization Address [facility] Phone Number [facility] CLIA: [id number] [place] [address] [place] [address] HIV 1/2 AG-AB WITH REFLEX (03/23/2020 10:40 AM COOKER OPERATOR) Pathologist Sig nature HIV 1/2 Ag-Ab with Negative Negative [facility] Reflex HOSPITAL LABORATORY HIV Semi-quantitative 0.08 [facility] Specimen Blood Narrative Performed At Non-reactive for HIV-1 antigen and HIV-1/HIV-2 [facility] antibodies. No laboratory evidence of HIV infection. Repeat in 2-4 weeks if acute HIV infection is suspected. Performing Organization Address [facility] Phone Number [facility] CLIA: [id number] [place] [address] HEPATITIS B SURFACE ANTIGEN (03/23/2020 10:40 AM COOKER OPERATOR) Pathologist Sig [facility] HBsAg Negative Negative [facility] HBsAg 0.10 [facility] Semi-Quantitative SERVICES Specimen Blood Performing Organization Address [facility] Phone Number [facility] CLIA: [id number] [place] [address] [place] [address] HCV ANTIBODY (03/23/2020 10:40 AM COOKER OPERATOR) Pathologist Sig nature HCV Ab Negative [facility] HCV Semi-Quantitative 0.02 [facility] Specimen Blood Performing Organization Address [facility] Phone Number [facility] CLIA: [id number] [place] [address] [place] [address] CBC WITH DIFF (03/23/2020 10:40 AM COOKER OPERATOR) Pathologist Sig nature WBC 5.93 4.30 - 11.10 [facility] 10*3/L HOSPITAL LABORATORY RBC 4.56 3.93 - 5.25 [facility] 10*6/L [facility]ITAL LAB[facility] HGB 14.2 11.6 - 15.0 g/dL [facility] HCT 40.6 35.7 - 45.2 % [facility] MCV 89.0 80.6 - 95.5 fL [facility] MCH 31.1 25.9 - 32.8 pg [facility] MCHC 35.0 31.6 - 35.1 g/dL [facility] RDW-SD 40.3 39.0 - 49.9 fL [facility] RDW-CV 12.4 12.0 - 15.5 % [facility] PLT 291 166 - 358 [facility] 10*3/L [facility] MPV 10.7 9.5 - 12.9 fL [facility] NRBC/100 WBC 0.0 0.0 - 10.0 /100 [facility] WBCs [facility] NRBC x10^3 <0.01 10*3/L [facility] GRAN MAT (NEUT) % 62.2 % [facility] IMM GRAN % 0.20 % [facility] LYMPH % 29.3 % [facility] MONO % 7.1 % [facility] EOS % 0.7 % [facility] BASO % 0.5 % [facility] GRAN MAT x10^3(ANC) 3.69 1.88 - 7.09 [facility] 10*3/uL HOSPITAL LABORATORY IMM GRAN x10^3 <0.03 0.00 - 0.06 [facility] 10*3/uL HOSPITAL LABORATORY LYMPH x10^3 1.74 1.32 - 3.29 [facility] 10*3/uL HOSPITAL LABORATORY MONO x10^3 0.42 0.33 - 0.92 [facility] 10*3/uL HOSPITAL LABORATORY EOS x10^3 0.04 0.03 - 0.39 [facility] 10*3/uL HOSPITAL LABORATORY BASO x10^3 0.03 0.01 - 0.07 [facility] 10*3/uL HOSPITAL LABORATORY Specimen Blood Performing Organization Address City/State/Zipcode Phone Number [facility] CLIA: [id number] [place] [address] ADC OR [place] ONLY - RPR (03/23/2020 10:40 AM COOKER OPERATOR) Pathologist Sig nature RPR (Qualitative) Nonreactive Nonreactive [facility] Specimen Blood Performing Organization Address City/[facility] Phone Number [facility] CLIA: [id number] [place] [address] ANTIBODY TITER INTERPS (03/23/2020 10:38 AM COOKER OPERATOR) Pathologist Sig nature TITERED AB Ab Titered: K LAB Comment: Performed at [facility] Laboratory Services - [facility] Blood [place] [address] Toll Free: [phone] CLIA No. [id number] AB TITER Antibody Titer: <1 LAB Comment: Performed at [facility] Laboratory Services [facility] Blood [place] [address] Toll Free: [phone] CLIA No. [id number] Specimen Performing Organization Address [facility] Phone Number [facility] LAB ANTIGEN TYPING PATIENT (03/23/2020 10:38 AM COOKER OPERATOR) Pathologist Sig nature ANTIGEN ID K Antigen Negative LAB Comment: Performed at [facility] Laboratory Services - [facility] Blood [place] [address] Toll Free: [phone] CLIA No. [id number] Specimen Performing Organization Address [facility] Phone Number [facility] PANEL IDENTIFICATION (03/23/2020 10:38 AM COOKER OPERATOR) Pathologist Sig nature ANTIBODY ID Anti-K LAB Comment: Performed at [facility] Laboratory Services - [facility] Blood [place] [address] Toll Free: [phone] CLIA No. [id number] Specimen Performing Organization Address [facility] Phone Number BLD LAB GLUCOSE 1 HOUR POST PRANDIAL (03/23/2020 10:38 AM COOKER OPERATOR) Pathologist Sig nature GLUC 1 HR 92 (L) 120 - 170 mg/dL [facility] Specimen Blood Performing Organization Address City/State/Zipcode Phone Number [facility] CLIA: [id number] [place] [address] WORKUP, BLOOD BANK (03/23/2020 10:38 AM COOKER OPERATOR) Pathologist Sig nature ABO & RH O POSITIVE LAB Comment: Performed at [facility] Laboratory Services - [facility] Blood Bank [address] [place] [address] Toll Free: [phone] CLIA No. [id number] IAT Positive LAB Comment: Performed at [facility] Laboratory Services - [facility] Blood Bank [address] [place] [address] Toll Free: [phone] CLIA No. [id number] Specimen Blood - [facility] Performing Organization Address City/State/Zipcode Phone Number [facility] LAB documented in this encounter Visit Diagnoses Diagnosis examination or test, positive result 8 weeks gestation of state, incidental documented in this encounter Insurance Payer Benefit Plan / Subscriber ID Effective Dates Phone Addre ss Type Group [facility] STAR [id number] 2019-Present Medicaid COMM PLAN - MANAGED MEDICAID documented as of this encounter
--- OUTSIDE RECORDS SUMMARY | 2020-04-23 16:19 | XMS REPORT | Summary of Care ---
:1990 [address] [facility] Address [address] [place] [address] Care Team Providers Name Role Phone Pcp, Does Not Have A Primary Care Provider Reason for Referral (Routine) Status Reason Specialty Diagnoses / Referred By Referred To Procedures Contact Contact New Request Maternal Diagnoses Supervision of high risk in second trimester Bing Casper Medicine Procedures CONSULT MATERNAL MEDICINE ULTRASOUND Preferred Location: Home ALVAREZ [id number] [place] [address] Reason for Visit Reason Comments MFM Visit (Routine) Status Reason Specialty Diagnoses / Referred By Referred To Procedures Contact Contact Closed Maternal Diagnoses High-risk in first trimester 11 weeks gestation of Red blood cell antibody positive Previous section Vicki Duran MD Medicine Procedures CONSULT/REFERRAL MATERNAL MEDICINE FACULTY/FELLOW Preferred location: [address] [place] [address] Encounter Details Date Type Department Care Team Description 04/19/2020 [facility] Cas[facility] [id number] [place], [place] [id number] Supervision of [facility] Anthony Bright Mfm risk in [address] [facility] (Primary Dx) [place] [address] Allergies No Known Allergiesdocumented as of this encounter (statuses as of 04/19/2020) Medications Medication Sig Dispensed Refills Start Date End Date Status Take by mouth. 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 documented as of this encounter Last Filed Vital Signs Vital Sign Reading Time Taken Comments Blood Pressure 120/74 04/19/2020 9:48 AM SURGICAL SERVICES MANAGER Pulse 73 04/19/2020 9:48 AM SURGICAL SERVICES MANAGER Temperature 36.7 C (98.1 F) 04/19/2020 9:48 AM SURGICAL SERVICES MANAGER Respiratory Rate 16 04/19/2020 9:48 AM SURGICAL SERVICES MANAGER Oxygen Saturation - - Inhaled Oxygen Concentration - - Weight 53.6 kg (118 lb 3 oz) 04/19/2020 9:48 AM SURGICAL SERVICES MANAGER Height 165.1 cm (5' 5") 04/19/2020 9:48 AM SURGICAL SERVICES MANAGER Body Mass Index 19.67 04/19/2020 9:48 AM SURGICAL SERVICES MANAGER documented in this encounter Progress Notes Bing Casper MD - 04/19/2020 9:30 AM CST Chief complaint: Chief Complaint Patient presents with MFM Visit HPI Histories OB History Para Term AB Living [...] didnt widen Past Medical History: Diagnosis Date 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 Transfusion history 2016- before delivery and after Family History Problem Relation Age of Onset No Significant Medical Problems Mother No Significant Medical Problems Father Family Status Relation Name Status Mo Alive Fa Alive MGMo Alive MGFa PGMo Alive PGFa Past Surgical History: Procedure Laterality Date SECTION N/A 02/15/2016 Surgeon: Steve Dyer MD; Location: [facility] OR Location CHOLECYSTECTOMY TUBAL LIGATION Bilateral 02/15/2016 Surgeon: Steve Dyer MD; Location: [facility] Delivery OR Location [...] file Gets together: Not on file Attends church service: Not on file Active member of [...] Sexual Activity Sexual Activity Yes Partners: Male Labs I have reviewed the patient's labs. Radiology No new radiology. Allergies Laura has No Known Allergies. Medications Laura has a current medication list which includes the following prescription(s): vits62/fa/om3/dha/epa. Review of Systems BP 120/74 (BP Location: Right arm, Patient Position: Sitting, BP CUFF SIZE: Adult Medium) | Pulse 73 | Temp 36.7 C (98.1 F) (Oral) | Resp 16 | Ht 5' 5" (1.651 m) | Wt 118 lb 3 oz (53.6 kg) | LMP 01/12/2020 (Exact Date) | BMI 19.67 kg/m Pregravid BMI: 18.31 Physical Exam Assessment/Plan Return to clinic in 4 weeks. 29yr at 14 wk IUP with 1) transfer of care from Dr. Duran due to CSx4; Patient was advised of the increased risk for dense adhesions required to be lysed; injury to bladder, ureters, bowel and vessels in area. Also increased risk for accreta needing hysterectomy which is associated with high morbidity and mortality. Patient verbalized her understanding and wants to sign BTL consents in case she does not get a hysterectomy. 2) Anti [place] AB positive but titers too low to titer. partner got lab drawn for Silvia antigen status.Results pending. Previous 2 pregnancies by same partner and did not have issues with Silvia. Suspect this is due to blood transfusion. If partner [place] positive, will draw monthly Ab titers. Otherwise, no further work up needed. 3) NIPT low risk; will request basic anatomy survey at 19 to 20 wk. MSAFP to be drawn next visit for NTD screening. 4) Rubella non-immune. Will need MMR . This visit involved counseling and coordination of care that comprised more than 50% of the visit time. I spent 30 minute(s) total time with the patient. Of that time, 10 minute(s) was spent on history and exam, and 20 minute(s) was spent counseling the patient regarding risks and benefits of treatment. In addition 0minute(s) was spent on coordination of care. documented in this encounter Miscellaneous Notes OB Summary Note - Bing Casper MD - 04/19/2020 9:30 AM CSTAge: 29 year old GA: 14w0d 29yr at 14 wk IUP with 1) transfer of care from Dr. Duran due to CSx4; Patient was advised of the increased risk for dense adhesions required to be lysed; injury to bladder, ureters, bowel and vessels in area. Also increased risk for accreta needing hysterectomy which is associated with high morbidity and mortality. Patient verbalized her understanding and wants to sign BTL consents in case she does not get a hysterectomy. 2) Anti [place] AB positive but titers too low to titer. partner got lab drawn for [place] antigen status.Results pending. Previous 2 pregnancies by same partner and did not have issues with [place]. Suspect this is due to blood transfusion. If partner Silvia positive, will draw monthly Ab titers. Otherwise, no further work up needed. 3) NIPT low risk; will request basic anatomy survey at 19 to 20 wk. MSAFP to be drawn next visit for NTD screening. 4) Rubella non-immune. Will need MMR . documented in this encounter Plan of Treatment Name Type Priority Associated Diagnoses Order S chedule POCT URINALYSIS W LAB Routine Supervision of high ris k 20 Occurrences starting SPECIFIC GRAVITY in second 03/24 until trimester 02/13/2021, 1 c ompleted Health Maintenance Due Date Last Done Comments DTaP,Tdap,and Td Vaccines (1 - 2010 Tdap) INFLUENZA VACCINE (#1) 2019 02/17/2016 Depression Screening 04/19/2021 04/19/2020 PAP SMEAR 03/11/2023 03/11/2020 PNEUMOCOCCAL 0-64 YEARS COMBINED Aged Out No longer eligible based on SERIES patient's age to complete this topic documented as of this encounter Procedures Procedure Name Priority Date/Time Associated Diagnosis Comme nts POCT URINALYSIS Routine 04/19/2020 9:51 AM Supervision of [facility] Results for this SURGICAL SERVICES MANAGER risk in procedure are in second trimester the results section. documented in this encounter Results POCT URINALYSIS W SPECIFIC GRAVITY (04/19/2020 9:51 AM SURGICAL SERVICES MANAGER) Pathologist Sig nature POCT U SP GRAV . 1.005 - 1.025 mg/dl POCT PH U 5 5 - 8 mg/dl POCT U LEUK EST Neg Negative - Negative POCT U NIT Neg Negative - Negative POCT U PROT Trace Negative - Negative POCT U GLU Neg Negative - Negative POCT U KETONE None Negative - Negative POCT U UROBILI . 0.2 - 1 mg/dl POCT U BILI . Negative - Negative POCT U BLD Trace Negative - Negative POCT U COLOR POCT U APPEAR Specimen Urine - URINE, CLEAN CATCH documented in this encounter Visit Diagnoses Diagnosis Supervision of high risk in se cond trimester - Primary Unspecified high-risk documented in this encounter Insurance Payer Benefit Plan / Subscriber ID Effective Dates Phone Addre ss Type Group [facility] [id number] 2019-Present Medicaid COMM PLAN - MANAGED MEDICAID documented as of this encounter
--- OUTSIDE RECORDS SUMMARY | 2020-04-23 16:19 | XMS REPORT | Summary of Care ---
:1990 Author Organization [facility] Address [address] [place] [address] Care Team Providers Name Role Phone Pcp, Does Not Have A Primary Care Provider Reason for Visit Reason Comments LAB Encounter Details Date Type Department Care Team Description 03/23/2020 Kitchen Hand Visit [facility] Vicki Duran MD [address] [place] [address] [address] [place] [address] examination or test, positive result; Professional Office 2, Adc Lab 8 weeks gestation of Building Phlebotomy Lab Professional Office Building [address] [facility] , [address] [place] [address] Allergies No Known Allergiesdocumented as of this encounter (statuses as of 03/29/2020) Medications No known medicationsdocumented as of this encounter (statuses as of 03/29/2020) Active Problems Problem Noted Date Previous section 03/11/2020 High-risk in first trimester 03/11/2020 Estimated Date of Delivery Comments Yes 10/18/2020 Based on last menstr ual period of 01/12/2020 (Exact Date) documented as of this encounter (statuses as of 03/29/2020) Resolved Problems Problem Noted Date Resolved Date [...] as of this encounter (statuses as of 03/29/2020) Immunizations Name Administration Dates Next Due Influenza [...] with No / Unsure 03/23/2020 9:34 AM COMMERCIAL ACCOUNT MANAGER someone who was confirmed or suspected [...] processed according to instructions and sent to [facility] laboratories per lab order on 03/23/20: [...] Alexandria Reece MBCHB - 03/23/2020 9:30 AM COMMERCIAL ACCOUNT MANAGER Addended by: ALEXANDRIA REECE on: 03/26/2020 06:21 PM Modules accepted: Orders ERCIAL ACCOUNT MANAGER documented in this encounter Plan of Treatment Date Type Specialty Care Team Description 04/08/2020 Routine Obstetrics & Duran, Vicki Sellers MD Visit Gynecology [address] [place] [address] DR. Prajapati [place], [place] [address] [phone] Name Type Priority Associated Diagnoses Date/Ti me TRANSFUSION MEDICINE DMT LAB Routine examin ation or test, 03/23/2020 INTERP positive result Health Maintenance Due Date Last Done Comments Depression Screening 2003 DTaP,Tdap,and Td Vaccines (1 - 2010 Tdap) INFLUENZA VACCINE (#1) 2019 02/17/2016 PAP SMEAR 03/11/2023 03/11/2020 PNEUMOCOCCAL 0-64 YEARS COMBINED Aged Out No longer eligible based on SERIES patient's age to complete this topic documented as of this encounter Procedures Procedure Name Priority Date/Time Associated Comments Diagnosis HIV 1/2 AG-AB WITH Routine 03/23/2020 10:40 Resul ts for this REFLEX AM COMMERCIAL ACCOUNT MANAGER examination or procedure are in test, positive the results result section. 8 weeks gestation of ADC OR [place] ONLY - Routine 03/23/2020 10:40 Re sults for this RPR AM COMMERCIAL ACCOUNT MANAGER examination or procedure are in test, positive the results result section. 8 weeks gestation of URINE CULTURE Routine 03/23/2020 10:40 Results fo r this AM COMMERCIAL ACCOUNT MANAGER examination or procedure are in test, positive the results result section. 8 weeks gestation of HCV ANTIBODY Routine 03/23/2020 10:40 Results for this AM COMMERCIAL ACCOUNT MANAGER examination or procedure are in test, positive the results result section. 8 weeks gestation of HEPATITIS B SURFACE Routine 03/23/2020 10:40 Resu lts for this ANTIGEN AM COMMERCIAL ACCOUNT MANAGER examination or procedure are in test, positive the results result section. 8 weeks gestation of VZV ANTIBODY SCREEN Routine 03/23/2020 10:40 Resu lts for this AM COMMERCIAL ACCOUNT MANAGER examination or procedure are in test, positive the results result section. 8 weeks gestation of RUBELLA SCREEN IGG Routine 03/23/2020 10:40 Resul ts for this AM COMMERCIAL ACCOUNT MANAGER examination or procedure are in test, positive the results result section. 8 weeks gestation of CBC WITH DIFF Routine 03/23/2020 10:40 Results fo r this AM COMMERCIAL ACCOUNT MANAGER examination or procedure are in test, positive the results result section. 8 weeks gestation of ANTIBODY TITER INTERPS Routine 03/23/2020 10:38 R esults for this AM COMMERCIAL ACCOUNT MANAGER procedure are i n the results section. HB ABO GROUPING Routine 03/23/2020 10:38 Results for this AM COMMERCIAL ACCOUNT MANAGER examination or procedure are in test, positive the results result section. 8 weeks gestation of PANEL IDENTIFICATION Routine 03/23/2020 10:38 Res ults for this AM COMMERCIAL ACCOUNT MANAGER procedure are i n the results section. ANTIGEN TYPING PATIENT Routine 03/23/2020 10:38 R esults for this AM COMMERCIAL ACCOUNT MANAGER procedure are i n the results section. GLUCOSE 1 HOUR POST Routine 03/23/2020 10:38 Resu lts for this PRANDIAL AM COMMERCIAL ACCOUNT MANAGER examination or procedure are in test, positive the results result section. 8 weeks gestation of documented in this encounter Results RUBELLA SCREEN IGG (03/23/2020 10:40 AM COMMERCIAL ACCOUNT MANAGER) Pathologist Sig nature Rubella screen IgG Negative Negative [facility] LABORATORY SERVIC ES Specimen Blood Narrative Performed At Positive - Indicates the patient was exposed to Rubell a [facility]ORY SERVICES through infection or vaccination. Negative - Indicates the patient could be susceptible to Rubella infection. Equivocal - A second specimen should be sent. Performing Organization Address City/State/Zipcode Phone Number [facility] SERVICES CLIA: [id number] [place] [address] [place] [address] VZV ANTIBODY SCREEN (03/23/2020 10:40 AM COMMERCIAL ACCOUNT MANAGER) Pathologist Sig nature VZV IgG antibody Positive Negative [facility] SERVICES Specimen Blood Narrative Performed At Positive - Indicates the patient was exposed to VZV th rough [facility] SERVICES infection or vaccination. Negative - Indicates the patient could be susceptible to VZV infection. Equivocal - A second specimen should be sent for testi ng. Performing Organization Address City/State/[facility] Phone Number [facility] SERVICES CLIA: [id number] [place] [address] [place] [address] URINE CULTURE (03/23/2020 10:40 AM COMMERCIAL ACCOUNT MANAGER) Pathologist Sig [facility] URINE CULTURE No aerobic growth [facility] LABORATORY (< 1000 CFU/mL) SERVICES Specimen Urine - URINE, CLEAN CATCH Performing Organization Address [facility] Phone Number [facility] SERVICES CLIA: [id number] [place] [address] [place] [address] HIV 1/2 AG-AB WITH REFLEX (03/23/2020 10:40 AM COMMERCIAL ACCOUNT MANAGER) Pathologist [facility] HIV 1/2 Ag-Ab with Negative Negative [facility] LABORATORY HIV Semi-quantitative 0.08 [facility] LABOR[facility]ORY Specimen Blood Narrative Performed At Non-reactive for HIV-1 antigen and HIV-1/HIV-2 [facility] LABORATORY antibodies. No laboratory evidence of HIV infection. Repeat in 2-4 weeks if acute HIV infection is suspected. Performing Organization Address [facility] Phone Number [facility] CLIA: [id number] [place] [address] HEPATITIS B SURFACE ANTIGEN (03/23/2020 10:40 AM COMMERCIAL ACCOUNT MANAGER) Pathologist [facility] HBsAg Negative Negative [facility]ORY SERVICES HBsAg 0.[address] [facility] LABORATORY Semi-Quantitative SERVICES Specimen Blood Performing Organization Address [facility] Phone Number [facility] SERVICES CLIA: [id number] [place] [address] [place] [address] HCV ANTIBODY (03/23/2020 10:40 AM COMMERCIAL ACCOUNT MANAGER) Pathologist [facility] HCV Ab Negative [facility]ORY SERVICES HCV Semi-Quantitative 0.[address] [facility]ORY SERVICES Specimen Blood Performing Organization Address [facility] Phone Number [facility] SERVICES CLIA: [id number] [place] [address] [place] [address] CBC WITH DIFF (03/23/2020 10:40 AM COMMERCIAL ACCOUNT MANAGER) Pathologist [facility] WBC 5.93 4.30 - 11.10 [facility] 10*3/L HOSPITAL LABORATORY RBC 4.56 3.93 - 5.25 [facility] 10*6/L HOSPITAL LABORATORY HGB 14.2 11.6 - 15.0 g/dL [facility] LABOR[facility] HCT 40.6 35.7 - 45.2 % [facility] MCV 89.0 80.6 - 95.5 fL [facility] MCH 31.1 25.9 - 32.8 pg [facility] MCHC 35.0 31.6 - 35.1 g/dL [facility] RDW-SD 40.3 39.0 - 49.9 fL [facility] RDW-CV 12.4 12.0 - 15.5 % [facility] LABORATORY PLT 291 166 - 358 [facility] 10*3/L [facility] LABORATORY MPV 10.7 9.5 - 12.9 fL [facility] LABOR[facility] NRBC/100 WBC 0.0 0.0 - 10.0 /100 [facility] WBCs [facility] LABORATORY NRBC x10^3 <0.01 10*3/L [facility] LABOR[facility]ORY GRAN MAT (NEUT) % 62.2 % [facility] LABOR[facility] IMM GRAN % 0.20 % [facility] LABOR[facility] LYMPH % 29.3 % [facility] MONO % 7.1 % [facility] EOS % 0.7 % [facility]OR[facility] BASO % 0.5 % [facility] LABORATORY GRAN MAT x10^3(ANC) 3.69 1.88 - 7.09 [facility] 10*3/uL HOSPITAL LABORATORY IMM GRAN x10^3 <0.03 0.00 - 0.06 [facility] 10*3/uL HOSPITAL LABORATORY LYMPH x10^3 1.74 1.32 - 3.29 [facility] 10*3/uL HOSPITAL LABORATORY MONO x10^3 0.42 0.33 - 0.92 [facility] 10*3/uL HOSPITAL LABORATORY EOS x10^3 0.04 0.03 - 0.39 [facility] 10*3/uL HOSPITAL LABORATORY BASO x10^3 0.03 0.01 - 0.07 [facility] 10*3/uL HOSPITAL LABORATORY Specimen Blood Performing Organization Address City/State/Zipcode Phone Number [facility] CLIA: [id number] [place] [address] ADC OR [place] ONLY - RPR (03/23/2020 10:40 AM COMMERCIAL ACCOUNT MANAGER) Pathologist Sig jericho RPR (Qualitative) Nonreactive Nonreactive [facility] LABORATORY Specimen Blood Performing Organization Address City/[facility]/Zipcode Phone Number [facility] CLIA: [id number] [place] [address] [address] ANTIBODY TITER INTERPS (03/23/2020 10:38 AM COMMERCIAL ACCOUNT MANAGER) Pathologist Sig jericho TITERED AB Ab Titered: K LAB Comment: Performed at [facility] Laboratory Services [facility] Blood [place] [address] Toll Free: [phone] CLIA No. [id number] AB TITER Antibody Titer: <1 LAB Comment: Performed at [facility] Laboratory Services [facility] Blood [place] [address] Toll Free: [phone] CLIA No. [id number] Specimen Performing Organization Address City/[facility] Phone Number BLD LAB ANTIGEN TYPING PATIENT (03/23/2020 10:38 AM COMMERCIAL ACCOUNT MANAGER) Pathologist Sig jericho ANTIGEN ID K Antigen Negative LAB Comment: Performed at [facility] Laboratory Services [facility] Blood [place] [address] Toll Free: [phone] CLIA No. [id number] Specimen Performing Organization Address City/[facility] Phone Number D LAB PANEL IDENTIFICATION (03/23/2020 10:38 AM COMMERCIAL ACCOUNT MANAGER) Pathologist Sig jericho ANTIBODY ID Anti-K LAB Comment: Performed at [facility] Laboratory Services - [facility] Blood [place] [address] Toll Free: [phone] CLIA No. [id number] Specimen Performing Organization Address City/[facility] Phone Number D LAB GLUCOSE 1 HOUR POST PRANDIAL (03/23/2020 10:38 AM COMMERCIAL ACCOUNT MANAGER) Pathologist Sig jericho GLUC 1 HR 92 (L) 120 - 170 mg/dL [facility] LABORATORY Specimen Blood Performing Organization Address City/State/Zipcode Phone Number [facility] CLIA: [id number] [place] [address] WORKUP, BLOOD BANK (03/23/2020 10:38 AM COMMERCIAL ACCOUNT MANAGER) Pathologist Sig nature ABO & RH O POSITIVE LAB Comment: Performed at [facility] Laboratory Services - [facility] Blood Bank [address] [place] [address] Toll Free: [phone] CLIA No. [id number] IAT Positive LAB Comment: Performed at [facility] Laboratory Services - [facility] Blood Bank [address] [place] [address] Toll Free: [phone] CLIA No. [id number] Specimen Blood - [place] Performing Organization Address City/State/Zipcode Phone Number BLD LAB documented in this encounter Visit Diagnoses Diagnosis examination or test, positive result 8 weeks gestation of state, incidental documented in this encounter Insurance Payer Benefit Plan / Subscriber ID Effective Dates Phone Addre ss Type Group [facility] ST[facility] [id number] 2019-Present Medicaid COMM PLAN - MANAGED MEDICAID documented as of this encounter
--- OUTSIDE RECORDS SUMMARY | 2020-04-23 16:19 | XMS REPORT | Summary of Care ---
:1990 Author Organization [facility] Address [address] [place] [address] Care Team Providers Name Role Phone Pcp, Does Not Have A Primary Care Provider Reason for Referral (Routine) Status Reason Specialty Diagnoses / Referred By Referred To Procedures Contact Contact New Request Maternal Diagnoses Supervision of high risk in second trimester Bing Casper Medicine Procedures CONSULT MATERNAL MEDICINE ULTRASOUND Preferred Location: Home ALVAREZ [id number] [place] [id number] Reason for Visit Reason Comments MFM Visit (Routine) Status Reason Specialty Diagnoses / Referred By Referred To Procedures Contact Contact Closed Maternal Diagnoses High-risk in first trimester 11 weeks gestation of Red blood cell antibody positive Previous section Vicki Duran MD Medicine Procedures CONSULT/REFERRAL MATERNAL MEDICINE FACULTY/FELLOW Preferred location: [address] [place] [address] Encounter Details Date Type Department Care Team Description [facility]2020 [facility] [id number] [place], [place] [id number] Supervision of [facility] Anthony Bright Mfm risk in [address] [facility] (Primary Dx) [place] [address] Allergies No Known Allergiesdocumented as [...] with No / Unsure 04/19/2020 9:48 AM OUTSIDE FOOD SERVER someone who was confirmed or suspected to have Coronavirus / COVID-19? documented as of this encounter Last Filed Vital Signs Vital Sign Reading Time Taken Comments Blood Pressure 120/74 04/19/2020 9:48 AM OUTSIDE FOOD SERVER Pulse 73 04/19/2020 9:48 AM OUTSIDE FOOD SERVER Temperature 36.7 C (98.1 F) 04/19/2020 9:48 AM OUTSIDE FOOD SERVER Respiratory Rate 16 04/19/2020 9:48 AM OUTSIDE FOOD SERVER Oxygen Saturation - - Inhaled Oxygen Concentration - - Weight 53.6 kg (118 lb 3 oz) 04/19/2020 9:48 AM OUTSIDE FOOD SERVER Height 165.1 cm (5' 5") 04/19/2020 9:48 AM OUTSIDE FOOD SERVER Body Mass Index 19.67 04/19/2020 9:48 AM OUTSIDE FOOD SERVER documented in this encounter Progress Notes Bing [...] N/A 02/15/2016 Surgeon: Steve Dyer MD; Location: [facility] OR Location CHOLECYSTECTOMY TUBAL LIGATION Bilateral 02/15/2016 Surgeon: Steve Dyer MD; Location: [facility] OR Location Social History [...] does not get a hysterectomy. 2) Anti [place] AB positive but titers too low to titer. partner got lab drawn for Silvia antigen status.Results pending. Previous 2 pregnancies by same partner and did not have issues with Silvia. Suspect this is due to blood transfusion. If partner [place] positive, will draw monthly Ab titers. Otherwise, [...] does not get a hysterectomy. 2) Anti [place] AB positive but titers too low to titer. partner got lab drawn for [place] antigen status.Results pending. Previous 2 pregnancies by same partner and did not have issues with [place]. Suspect this is due to blood transfusion. [...] URINALYSIS Routine 04/19/2020 9:51 AM Supervision of [facility] Results for this OUTSIDE FOOD SERVER risk in procedure are in second trimester the results section. documented in this encounter Results POCT URINALYSIS W SPECIFIC GRAVITY (04/19/2020 9:51 AM OUTSIDE FOOD SERVER) Pathologist Sig nature POCT U SP GRAV [...] Effective Dates Phone Addre ss Type Group [facility] STAR [id number] 2019-Present Medicaid COMM PLAN - MANAGED MEDICAID documented as of this encounter
--- OUTSIDE RECORDS SUMMARY | 2020-04-23 16:19 | XMS REPORT | Summary of Care ---
:1990 Author Organization [facility] Address [address] [place] [address] Care Team Providers Name Role Phone Pcp, Does Not Have A Primary Care Provider Reason for Referral (Routine) Status Reason Specialty Diagnoses / Referred By Referred To Procedures Contact Contact New Request Maternal Diagnoses High-risk in first trimester 11 weeks gestation of Red blood cell antibody positive Previous section Vicki Duran Medicine Procedures CONSULT/REFERRAL MATERNAL MEDICINE FACULTY/FELLOW Preferred location: Home AL[facility]ARE[facility] [address] [place] [address] [facility] [address] [place] [address] Reason for Visit Reason Comments ROUTINE VISIT Encounter Details Date Type Department Care Team Description 03/30/2020 Routine [facility] Women's Vicki Duran am, MD High-risk in first trimester ( Primary Dx); Visit Healthcare- [address] [place] [address] 11 weeks g estation of ; Home ARAUJO Red blood cell antibody positive; [address] [place] [address] [place] [id number] [phone] Allergies No Known Allergiesdocumented as of this encounter (statuses as of 03/30/2020) Medications Medication Sig Dispensed Refills Start Date End Date Status Take by mouth. 0 Acti ve vits62/FA/om3/dha/epa ( GUMMY ORAL) documented as of this encounter (statuses as of 03/30/2020) Active Problems Problem Noted Date 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 Previous section 03/11/2020 High-risk in first trimester 03/11/2020 Estimated Date of Delivery Comments Yes 10/18/2020 Based on last menstr ual period of 01/12/2020 (Exact Date) documented as of this encounter (statuses as of 03/30/2020) Resolved Problems Problem Noted Date Resolved Date [...] as of this encounter (statuses as of 03/30/2020) Immunizations Name Administration Dates Next Due Influenza [...] been in contact with No / Unsure 03/30/2020 10:36 AM TRACE CLERK someone who was confirmed or suspected to have Coronavirus / COVID-19? documented as of this encounter Last Filed Vital Signs Vital Sign Reading Time Taken Comments Blood Pressure 131/82 03/30/2020 10:46 AM TRACE CLERK Pulse 72 03/30/2020 10:46 AM TRACE CLERK Temperature 36.8 C (98.2 F) 03/30/2020 10:46 AM TRACE CLERK Respiratory Rate 16 03/30/2020 10:46 AM TRACE CLERK Oxygen Saturation - - Inhaled Oxygen Concentration - - Weight 53.5 kg (118 lb) 03/30/2020 10:46 AM TRACE CLERK Height 165.1 cm (5' 5") 03/30/2020 10:46 AM TRACE CLERK Body Mass Index 19.64 03/30/2020 10:46 AM TRACE CLERK documented in this encounter Patient Instructions Patient InstructionsAlexa Louis MA - 03/30/2020 10:30 AM CST Patient Education What Is Care? Before getting , you may have adopted good health habits to get ready for your baby. But if you didnt, start today. One of the first steps is learning how to take care of yourself. See your healthcare provider as soon as you think you may be . Then continue care during yourpregnancy. care helps you have a healthy baby During care: Your healthcare provider evaluates the health of your . Your provider will calculate a due date. This gives an estimate of your baby's delivery. Many women give between 38 and 41 weeks of . Your due date is found by counting 40 weeks from the first day of your last menstrual period. The progress of your is checked. This includes your babys growth, heart rate, changes in your weight and blood pressure,and your overall health and comfort. Your provider may find new concerns and manage existing ones before problems happen. Your provider will check lab work through blood and urine. Your provider will discuss normal changes that happen during . They will also talk aboutchanges that may not be normal. And they'll advise you about lifestyle changes. Your provider will answer your questions. They will also help you get ready for labor and delivery. You are part of a team When youre , youre part of a team. This team includes you, your baby, and your healthcare provider. Your team also may include a partner or a main support person. That could be a loved one, such as a spouse, a family member, or a friend. As you work toward giving your baby a healthy start, rely on your team members for support. Its not too late to start good habits What matters most is protecting your baby from this moment on. If you smoke, drink alcohol, or use drugs, now is the time to stop. If you need help, talk with your healthcare provider: Smoking increases the risk of losing your baby or having a zng-ijqwp-exukxw baby. If you smoke, quit now. Alcohol and drugs have been linked with miscarriage, defects, intellectual disability, and low weight. Stay away from alcohol and drugs. Eat a healthy diet. This helps keep you and your baby strong and healthy. Follow your healthcare provider's instructions for nutrition. Also stay within the guidelines you are given for healthy weight gain. Take 400microgramsto 800 micrograms (400 mcg to 800 mcg or 0.4 mg to 0.8 mg) of folic acid every day. Take it for at least 1 month before getting . And keep taking it for the first trimester of your . This is to lower your risk of some brain and spinal defects. You can get folic acid from some foods. But it's hard to get all the folic acid you will need from foods alone.Talk with your provider about taking a folic acid supplement. Regular exercise will help you stay fit and feel good during . It can also help preventor reduce back pain. Talk with your provider about how to exercise safely during . If you have a health condition, be sure it is under control. Some conditions include asthma, diabetes, depression, high blood pressure, obesity, thyroid disease, or epilepsy. Be sure your vaccines are up to date. [employer] last reviewed this educational content on 11/22/201919993479-1438 [employer]. All rights reserved. This information is not intended as a substitute for professional medical care. Always follow your healthcare professional's instructions. Patient Education Comfort Tips During can bring discomfort of different kinds. Below are tips for ways to feel better.Talk with yourhealthcare provider before using pain-relieving medicine at any time during your . First trimester tips Easing nausea Get up slowly. Eat a few unsalted crackers before you get out of bed. Avoid smells that bother you. Eat small,bland, low-fat, high-protein meals at frequent intervals. Sip on water, weaktea, or clear soft drinks, like niurka zane.Eat ice chips. Try taking vitamin B6. Coping with fatigue Take catnaps when you can. Get regular exercise. Accept help from others. Practice good sleep habits, like going to bed and getting up at the same time each day. Use your bed only for sleep and sex. Calming mood swings Talk about your feelings with others, including other mothers. Limit sugar, chocolate, and caffeine. Eat a healthy diet. Dont skip meals. Get regular exercise. Soothing headaches Get fresh air and exercise. Relax and get enough rest. Check with your healthcare provider before taking any pain medicines. Second trimester tips To limit ankle swelling, sit with your feet raised or wear support hose. If you have pain in your groin and stomach(round ligament pain), don't make sudden twisting movements with your body. For leg cramps, flexing your foot often brings immediate relief. Also try massaging your calf in long, downward strokes, or stretching your legs before going to bed. Get enough exercise and wear shoes with flexible soles. Eat foods rich in calcium. Third trimester tips Reducing heartburn Eat small, light meals throughout the day rather than 3 large ones. Sleep with your upper body raised 6 inches. Dont lie down until 2 hours after you eat. Don't eat greasy, fried, or spicy foods. Don't have citrus fruits or juices. Treating constipation Eat foods high in fiber, such as whole-grain foods, and fresh fruit and vegetables). Drink plenty of water. Get regular exercise. Ask about your healthcare provider about medicines that have docusate or psyllium. Taking care of your breasts Don't use harsh soaps or alcohol, which can make your skin too dry. Wear nursing bras. They provide more support than regular bras and can be used after ifyou breastfeed. Getting a good nights sleep Take a warm shower before bed. Sleep on a firm mattress. Lie on your side with 1 leg crossed over the other. Use pillows to support your arms, legs, and belly. [employer] last reviewed this educational content on 11/22/201919990957-3354 [employer]. All rights reserved. This information is not intended as a substitute for professional medical care. Always follow your healthcare professional's instructions. Patient Education Adapting to : First Trimester As your body adjusts during your first trimester of , you may have to change or limit your daily activities. Youll need more rest. You may also need to use the energy you have more wisely. Your changing body Almost every part of your body is affected as you adapt to . The uterus and cervix will start to soften right away. You may not look very during the first 3 months. But you are likelyto have some common signs of early : Nausea Fatigue Frequent urination Mood swings Bloating of the belly Constipation Heartburn Missed or light periods (first trimester bleeding) Nipple or breast tenderness and breast swelling Its not too late to start good habits What matters most is protecting your baby from this moment on. If you smoke, drink alcohol, or use drugs, now is the time to stop. If you need help, talk with your healthcare provider: Smoking increases the risk of stillbirthor having a rhl-giogn-csssqw baby. If you smoke, quit now. Alcohol and drugs have been linked with miscarriage, defects, intellectual disability, and low weight. Don't drink alcohol or take drugs. Tips to relieve nausea During , nausea can happen at any time of the day, but it may be worse in the morning. To help prevent nausea: Eat small, light meals at frequent intervals. Drink fluids often. Get up slowly. Eat a few unsalted crackers before you get out of bed. Avoid smells that bother you. Avoid spicy and fatty foods. Eat an ice popin your favorite flavor. Get plenty of rest. Ask your healthcare provider about taking niurka or vitamin B6 for nausea and vomiting. Talk with your healthcare provider if you take vitamins that upset your stomach. Work concerns The end of the first trimester is a good time to discuss working during with your employer. Follow your healthcare providers advice if your job needs you to stand for a long time, work with hazardous tools, or even sit at a desk all day. Your workspace, workload, or scheduled hours may need to be adjusted. Perhaps you can change body postures more often or take an extra break. Advice for travel Talk to your healthcare provider first, but the second trimester may be the best time for any travel. You may be advised to avoid certain trips while youre . Food and water can be concerns in developing countries. Travel by car is a good choice, as you can stop, get out, and stretch. Bring snacks and water along. Fasten the lap belt below your belly, low over your hips. Also be sure to wear the shoulder harness. Intimacy Unless your healthcare provider tells you to, there's no reason to stop having sex while youre . You or your partner may notice changes in desire. Desire may be less in the first trimester, due to nausea and fatigue. In the second trimester, sex may be very enjoyable. The third trimester can be a challenge comfort-nicholas. Try different positions and see whats best for you both. [employer] reviewed this educational content on 07/23/201919999704-6814 [employer]. All rights reserved. This information is not intended as a substitute for professional medical care. Always follow your healthcare professional's instructions. Patient Education : Your First Trimester Changes The first trimester is a time of rapid development for your baby. Because your baby is growing so quickly, it is important that you start a healthy lifestyle right away. By the end of the first trimester, your baby has formed all of its major body organs and weighs just over an ounce. Actual size of baby is 1/4" Month 1 (weeks 1 to 4) The placenta (the organ that nourishes your baby) begins to form. Thebrain, spinal cord,heart,gastrointestinal tract,and lungs begin to develop. Your baby is about inch long by the end of the first month. Actual size of baby is 1" Month 2 (weeks 5 to 8) All of your babys major body organs form. The face, fingers, toes, ears, and eyes appear. By the end of the month, your baby is about 1 inch long. Actual size of baby is 3" Month 3 (weeks 9 to 12) Your baby can open and close its fists and mouth. The sexual organs begin to form. As the first trimester ends, your baby is about 3 inches long. [employer] reviewed this educational content on 11/22/201919990809-9065 [employer]. All rights reserved. This information is not intended as a substitute for professional medical care. Always follow your healthcare professional's instructions. E CLERK documented in this encounter Progress Notes Vicki Duran MD - 03/30/2020 10:30 AM CST ROUTINE VISIT 03/30/2020 11:14 AM SUBJECTIVE Laura Feldman is a 29 year old at 11w1d who presents for results review. She has no complaints today; denies vaginal bleeding or cramping. OBJECTIVE BP 131/82 (BP Location: Left arm, Patient Position: Sitting, BP CUFF SIZE: Adult Medium) | Pulse 72 | Temp 36.8 C (98.2 F) (Oral) | Resp 16 | Ht 5' 5" (1.651 m) | Wt 118 lb (53.5 kg) | LMP 01/12/2020 (Exact Date) | BMI 19.64 kg/m FHT: 158 Physical Exam: Gen: A&Ox3, NAD CV: RRR Pulm: CTAB Abd: Soft, NTTP, ND, no rebound or guarding Ext: No calf tenderness ASSESSMENT: Laura Feldman is a 29 year old at 11w1d who presents for routine visit. Plan: See OB Summary RTC prn Scribe's Attestation Abel Dugan am scribing for, and in the presence of, Vicki Duran MD who performed the services described here-in. Abel Wood, March 30, 2020, 11:14 AM Physician's Attestation Vicki Duran MD 03/30/2020 11:52 AM documented in this encounter Miscellaneous Notes OB Summary Note - Abel Wood - 03/30/2020 10:30 AM CST Age: [age] year old GA: 11w1d Doing well, no complaints NOB labs WNL except Rubella NI Here to review lab results Advised patient that she now has antibody K most likely from her blood transfusion with her last . Testing of the father of the baby for the antigen in question is the next step. If the father is antigen negative and paternity can be assured then no further evaluation is needed Advised patient that it is recommended that her care be transferred to [facility] due to the Antibody K andmassive adhesions and previous CD x 4 and it puts her at higher risk of needing a blood transfusion again and also puts baby at higher risks for complications. All questions were answered and patient understands needing to be transferred to [facility] and understands she will deliver in [place]. Patient agrees with Plan of care. Panorama kit given RTC prn Scribe's Attestation IAbel am scribing for, and in the presence of, Vicki Duran MD who performed the services described here-in. Abel Wood, March 30, 2020, 11:10 AM Physician's Attestation I have seen and examined the patient and agreed with the note above Vicki Duran MD 03/30/2020 11:46 AM documented in this encounter Plan of Treatment Date Type Specialty Care Team Description 04/01/2020 Laborer Plumbing Visit Phlebotomy 2, Adc Lab 04/08/2020 Routine Visit Obstetrics & Vicki Duran MD Gynecology [address] [place] [address] [address] [place], [place] [address] [phone] Health Maintenance Due Date Last Done Comments Depression Screening 2003 DTaP,Tdap,and Td Vaccines (1 - 2010 Tdap) INFLUENZA VACCINE (#1) 2019 02/17/2016 PAP SMEAR 03/11/2023 03/11/2020 PNEUMOCOCCAL 0-64 YEARS COMBINED Aged Out No longer eligible based on SERIES patient's age to complete this topic documented as of this encounter Results Not on filedocumented in this encounter Visit Diagnoses Diagnosis High-risk in first trimester - Primary 11 weeks gestation of state, incidental Red blood cell antibody positive Other and unspecified nonspecific immuno logical findings Previous section Other postprocedural status documented in this encounter Insurance Payer Benefit Plan / Subscriber ID Effective Dates Phone Addre ss Type Group [facility] STAR [id number] 2019-Present Medicaid COMM PLAN - MANAGED MEDICAID documented as of this encounter
--- OUTSIDE RECORDS SUMMARY | 2020-04-23 16:19 | XMS REPORT | Summary of Care ---
:1990 Author Organization [facility] Address [address] [place] [id number] Care Team Providers Name Role Phone Pcp, Does Not Have A Primary Care Provider Reason for Visit Reason Comments Results Panorama- low risk, male Encounter Details Date Type Department Care Team Description 04/14/2020 Telephone [facility] Women's Duran, Vicki severino MD Results ([facility]- [address] risk, male) [address] [place] [address] [address], [address] [place], [place] [phone] Allergies No Known Allergiesdocumented as of this encounter (statuses as of 04/14/2020) Medications Medication Sig Dispensed Refills Start Date End Date Status Take by mouth. 0 Acti ve vits62/FA/om3/dha/epa ( GUMMY ORAL) documented as of this encounter (statuses as of 04/14/2020) Active Problems Problem Noted Date 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 Previous section 03/11/2020 High-risk in first trimester 03/11/2020 Estimated Date of Delivery Comments Yes 10/18/2020 Based on last menstr ual period of 01/12/2020 (Exact Date) documented as of this encounter (statuses as of 04/14/2020) Resolved Problems Problem Noted Date Resolved Date [...] as of this encounter (statuses as of 04/14/2020) Immunizations Name Administration Dates Next Due Influenza [...] with No / Unsure 03/30/2020 10:36 AM MAIL CARRIER someone who was confirmed or suspected to have Coronavirus / COVID-19? documented as of this encounter Last Filed Vital Signs Not on filedocumented in this encounter Miscellaneous Notes Telephone Encounter - Rosanna Daniels MA - 04/14/2020 4:17 PM CSTSpoke with patient, name and verified. Patient informed of lab results and verbalized understanding. elephone Encounter - Carol Cyr - 04/14/2020 12:12 PM CSTPer patient she missed a call from the nurse regarding her lab results. Please call againp a CARRIER Telephone Encounter - Rosanna Daniels MA - 04/14/2020 12:07 PM CSTVoicemail left for patient to return call. elephone Encounter - Alanis Pulliam - 04/14/2020 9:30 AM CSTPatient returned the call for lab results elephone Encounter - Rosanna Daniels MA - 04/14/2020 9:03 AM CSTNatera results received. Panorama- low risk, male Voicemail left for patient to return call. CARRIER documented in this encounter Plan of Treatment Date Type Specialty Care Team Description 04/19/2020 Office Visit OB Satellites Bing Casper MD [id number] [place], [place] [id number] [facility], [facility] Health Maintenance Due Date Last Done Comments [...] Effective Dates Phone Addre ss Type Group [facility] STAR [id number] 2019-Present Medicaid COMM PLAN - MANAGED MEDICAID documented as of this encounter
--- OUTSIDE RECORDS SUMMARY | 2020-04-23 16:19 | XMS REPORT | Summary of Care ---
:1990 Author Organization [facility] Address [address] [place] [id number] Care Team Providers Name Role Phone Pcp, Does Not Have A Primary Care Provider Reason for Referral (Routine) Status Reason Specialty Diagnoses / Referred By Referred To Procedures Contact Contact New Request Maternal Diagnoses High-risk in first trimester 11 weeks gestation of Red blood cell antibody positive Previous section Vicki Duran Medicine Procedures CONSULT/REFERRAL MATERNAL MEDICINE FACULTY/FELLOW Preferred location: Home [facility] [address] [place] [address] [facility] [address] [place] [address] Reason for Visit Reason Comments ROUTINE VISIT Encounter Details Date Type Department Care Team Description 03/30/2020 Routine [facility] Women's Vicki Duran am, MD High-risk in first trimester ( Primary Dx); Visit Healthcare- [address] [place] [address] 11 weeks g estation of ; Home ARAUJO Red blood cell antibody positive; [address] [place] [address] [address], [address] [place] [id number] [phone] Allergies No Known Allergiesdocumented as of this [...] with No / Unsure 03/30/2020 10:36 AM SPORTS PHYSICIAN someone who was confirmed or suspected to have Coronavirus / COVID-19? documented as of this encounter Last Filed Vital Signs Vital Sign Reading Time Taken Comments Blood Pressure 131/82 03/30/2020 10:46 AM SPORTS PHYSICIAN Pulse 72 03/30/2020 10:46 AM SPORTS PHYSICIAN Temperature 36.8 C (98.2 F) 03/30/2020 10:46 AM SPORTS PHYSICIAN Respiratory Rate 16 03/30/2020 10:46 AM SPORTS PHYSICIAN Oxygen Saturation - - Inhaled Oxygen Concentration - - Weight 53.5 kg (118 lb) 03/30/2020 10:46 AM SPORTS PHYSICIAN Height 165.1 cm (5' 5") 03/30/2020 10:46 AM SPORTS PHYSICIAN Body Mass Index 19.64 03/30/2020 10:46 AM SPORTS PHYSICIAN documented in this encounter Patient Instructions Patient [...] of losing your baby or having a qio-dlrom-surysi baby. If you smoke, quit now. Alcohol [...] sure your vaccines are up to date. [email or web address] last reviewed this educational content on 11/22/201919992393-6661 [employer]. All rights reserved. This information is not [...] to support your arms, legs, and belly. [email or web address] last reviewed this educational content on 11/22/201919998349-2633 [employer]. All rights reserved. This information is not [...] increases the risk of stillbirthor having a zhl-yklwn-zebunl baby. If you smoke, quit now. Alcohol [...] and see whats best for you both. [employer] reviewed this educational content on 07/23/201919999658-6766 [employer]. All rights reserved. This information is not [...] your baby is about 3 inches long. [employer] reviewed this educational content on 11/22/201919991619-4195 [employer]. All rights reserved. This information is not intended as a substitute for professional medical care. Always follow your healthcare professional's instructions. TS PHYSICIAN documented in this encounter Progress Notes Vicki [...] recommended that her care be transferred to [facility] due to the Antibody K andmassive adhesions and previous CD x 4 and it puts her at higher risk of needing a blood transfusion again and also puts baby at higher risks for complications. All questions were answered and patient understands needing to be transferred to [facility] and understands she will deliver in [place]. Patient agrees with Plan of care. Panorama [...] Date Type Specialty Care Team Description 04/01/2020 Cashier Visit Phlebotomy 2, Adc Lab 04/08/2020 Routine Visit Obstetrics & Vicki Duran MD Gynecology [address] [place] [address] DR. Praj[address]ati [place], [place] [address] [phone] Health Maintenance Due Date Last Done Comments [...] Effective Dates Phone Addre ss Type Group [facility] STAR [id number] 2019-Present Medicaid COMM PLAN - MANAGED MEDICAID documented as of this encounter
[2020-04-23 18:03] LABS: SARS-COV-2 RT PCR POSITIVE (NEGATIVE)
--- NOTE | 2020-04-23 18:04 | ER ---
Nurse's Notes [facility] Name: Laura Feldman Age: 29 yrs Sex: Female : 1990 Arrival Date: 04/23/2020 Time: 16:17 Bed 20 Private MD: Diagnosis: Coronavirus infection, unspecified Presentation: 04/23 16:22 Chief complaint: Patient states: I wanna be tested for Covid. I have severe body aches, ca1 sore throat, cough, congestion,diarrhea. Denies fever. My mom, sister and niece tested positive for Covid. My symptoms started Sunday/Sunday. Pt at 14 weeks. Coronavirus screen: Client denies travel out of the [place] in the last 14 days. congestion, cough unrelated to allergies, diarrhea, muscle pain, sore throat, Client presents with at least one sign or symptom that may indicate coronavirus-19. Standard/surgical mask placed on the client. Provider contacted for isolation considerations. Ebola Screen: Patient negative for fever greater than or equal to 101.5 degrees Fahrenheit, and additional compatible Ebola Virus Disease symptoms Patient denies exposure to infectious person. Patient denies travel to an Ebola-affected area in the 21 days before illness onset. No symptoms or risks identified at this time. Initial Sepsis Screen: Does the patient meet any 2 criteria? No. Patient's initial sepsis screen is negative. Does the patient have a suspected source of infection? No. Patient's initial sepsis screen is negative. Risk Assessment: Do you want to hurt yourself or someone else? Patient reports no desire to harm self or others. Onset of symptoms was April 23, 2020. 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 - Social history:: Smoking status: Patient denies any tobacco usage or history of. Screenin:02 Abuse screen: Denies threats or abuse. Nutritional screening: No deficits noted. jd3 Tuberculosis screening: No symptoms or risk factors identified. Fall Risk Ambulatory Aid- None/Bed Rest/Nurse Assist (0 pts). Gait- Normal/Bed Rest/Wheelchair (0 pts) Mental Status- Oriented to own ability (0 pts). Total Santos Fall Scale indicates No Risk (0-24 pts). Assessment: 16:58 General: Appears in no apparent distress. uncomfortable, Behavior is calm, cooperative, jd3 appropriate for age, Reports chills for 1-2 days, fatigue for. Pain: Complains of pain in head Quality of pain is described as aching. Neuro: Level of Consciousness is awake, alert, obeys commands, Oriented to person, place, time, situation. Cardiovascular: Denies chest pain. Respiratory: Reports shortness of breath on exertion cough that is persistent Airway is patent Respiratory effort is even, unlabored, Respiratory pattern is regular, symmetrical, Breath sounds are clear bilaterally. GI: Abdomen is flat, non-distended, Abd is soft and non tender X 4 quads. Reports nausea. : No signs and/or symptoms were reported regarding the genitourinary system. EENT: No signs and/or symptoms were reported regarding the EENT system. Derm: Skin is intact, Skin is dry, Skin is normal, Skin temperature is warm. Musculoskeletal: Circulation, motion, and sensation intact. Range of motion: intact in all extremities. 18:03 Reassessment: Patient appears in no apparent distress at this time. No changes from jd3 previously documented assessment. Patient and/or family updated on plan of care and expected duration. Pain level reassessed. Patient is alert, oriented x 3, equal unlabored respirations, skin warm/dry/pink. Vital Signs: 16:22 BP 111 / 65; Pulse 83; Resp 16 S; Temp 97.2(TE); Pulse Ox 100% on R/A; Weight 53.52 kg ca1 (R); Height 5 ft. 5 in. (165.10 cm) (R); Pain 0/10; 18:05 Pulse 64; Resp 17 S; Pulse Ox 100% on R/A; jd3 16:22 Body Mass Index 19.64 (53.52 kg, 165.10 cm) ca1 ED Course: 16:17 Patient arrived in ED. rg4 16:23 Scarlett Robertson FNP-C is [facility]. kb 16:23 Michael Oakes MD is Attending Physician. kb 16:24 Triage completed. ca1 16:25 Arm band placed on right wrist. ca1 16:44 Zach Feliciano, RN is Primary Nurse. jd3 16:56 COVID swab sent to lab. Flu and/or RSV swab sent to lab. jp3 17:02 Patient has correct armband on for positive identification. Bed in low position. Call jd3 light in reach. Side rails up X 1. Pulse ox on. NIBP on. 18:14 No provider procedures requiring assistance completed. Patient did not have IV access jd3 during this emergency room visit. Administered Medications: No medications were administered Outcome: 18:03 Discharge ordered by MD. kb 18:14 Discharged to home ambulatory, with family. jd3 18:14 Condition: stable 18:14 Discharge instructions given to patient, Instructed on discharge instructions, follow up and referral plans. Demonstrated understanding of instructions, follow-up care. 18:14 Patient left the ED. jd3 Signatures: Scarlett Robertson FNP-C FNP-Cheryl Armendariz rg4 Zach Feliciano, RN RN jd3 Fredrick Joya jp3 Morelia Velazquez, GERARDO RN ca1 Corrections: (The following items were deleted from the chart) 16:26 16:22 Chief complaint: Patient states: I wanna be tested for Covid. I have severe body ca1 aches, sore throat, cough, congestion,diarrhea. Denies fever. My mom tested positive for Covid. My symptoms started Sunday/Sunday ca1
--- NOTE | 2020-04-23 18:04 | EDPHYS ---
Physician Documentation [facility] Name: Laura Feldman Age: 29 yrs Sex: Female : 1990 Arrival Date: 04/23/2020 Time: 16:17 Bed 20 Private MD: ED Physician Michael Oakes HPI: 04/23 17:25 This 29 yrs old Female presents to ER via Ambulatory with complaints of kb Nausea, Fatigue Chills Body Aches. 17:25 The patient or guardian reports cough, that is intermittent, described as mild, with no kb sputum, flu symptoms, low-grade fever, myalgias. Onset: The symptoms/episode began/occurred 2 day(s) ago. Severity of symptoms: At their worst the symptoms were mild, moderate, in the emergency department the symptoms are unchanged. Modifying factors: The symptoms are alleviated by nothing, the symptoms are aggravated by nothing. Associated signs and symptoms: Pertinent positives: fever, rhinorrhea. The patient has not experienced similar symptoms in the past. The patient has not recently seen a physician. Pt reports cough, fatigue, malaise, and body aches that started 2 days ago. Has been around her mother, sister and niece recently. Found out they are all COVID positive today. 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 - Social history:: Smoking status: Patient denies any tobacco usage or history of. ROS: 17:24 Cardiovascular: Negative for chest pain, palpitations, and edema, Abdomen/GI: Negative kb for abdominal pain, nausea, vomiting, diarrhea, and constipation, Back: Negative for injury and pain, MS/Extremity: Negative for injury and deformity, Skin: Negative for injury, rash, and discoloration, Neuro: Negative for headache, weakness, numbness, tingling, and seizure. 17:24 Constitutional: Positive for body aches, chills, fatigue, fever, malaise. 17:24 Respiratory: Positive for cough. Exam: 17:24 Constitutional: This is a well developed, well nourished patient who is awake, alert, kb and in no acute distress. Head/Face: Normocephalic, atraumatic. Chest/axilla: Normal chest wall appearance and motion. Nontender with no deformity. No lesions are appreciated. Cardiovascular: Regular rate and rhythm with a normal S1 and S2. No gallops, murmurs, or rubs. Normal PMI, no JVD. No pulse deficits. Respiratory: Lungs have equal breath sounds bilaterally, clear to auscultation and percussion. No rales, rhonchi or wheezes noted. No increased work of breathing, no retractions or nasal flaring. Abdomen/GI: Soft, non-tender, with normal bowel sounds. No distension or tympany. No guarding or rebound. No evidence of tenderness throughout. Skin: Warm, dry with normal turgor. Normal color with no rashes, no lesions, and no evidence of cellulitis. MS/ Extremity: Pulses equal, no cyanosis. Neurovascular intact. Full, normal range of motion. Neuro: Awake and alert, GCS 15, oriented to person, place, time, and situation. Cranial nerves II-XII grossly intact. Motor strength 5/5 in all extremities. Sensory grossly intact. Cerebellar exam normal. Normal gait. Vital Signs: 16:22 BP 111 / 65; Pulse 83; Resp 16 S; Temp 97.2(TE); Pulse Ox 100% on R/A; Weight 53.52 kg ca1 (R); Height 5 ft. 5 in. (165.10 cm) (R); Pain 0/10; 18:05 Pulse 64; Resp 17 S; Pulse Ox 100% on R/A; jd3 16:22 Body Mass Index 19.64 (53.52 kg, 165.10 cm) ca1 MDM: 16:29 Patient medically screened. kb 17:25 Data reviewed: vital signs, nurses notes. Data interpreted: Pulse oximetry: on room air kb is 100 %. Interpretation: normal. Counseling: I had a detailed discussion with the patient and/or guardian regarding: the historical points, exam findings, and any diagnostic results supporting the discharge/admit diagnosis, lab results, the need for outpatient follow up, a family practitioner, to return to the emergency department if symptoms worsen or persist or if there are any questions or concerns that arise at home. 04/23 16:30 Order name: Flu kb 04/23 18:04 Order name: COVID-19/FLU A+B; Complete Time: 18:04 EDMS Administered Medications: No medications were administered Disposition: 04/23/20 18:03 Discharged to Home. Impression: Coronavirus infection, unspecified. - Condition is Stable. - Discharge Instructions: Viral Respiratory Infection, [id number], COVID-19. - Medication Reconciliation Form, Thank You Letter, Antibiotic Education, Prescription Opioid Use form. - Follow up: Emergency Department; When: As needed; Reason: Worsening of condition. Follow up: Private Physician; When: 2 - 3 days; Reason: Recheck today's complaints, Continuance of care, Re-evaluation by your physician. Addendum: 04/25/2020 07:34 Co-signature as Attending Physician, Michael Oakes MD I agree with the assessment and t w4 plan of care. Signatures: Dispatcher [employer] [facility] Scarlett Robertson, FRED-Chaitanya IBARRA-Zach Garrison, RN RN jd3 Michael Oakes MD MD tw4 Morelia Velazquez RN RN ca1 Corrections: (The following items were deleted from the chart) 04/23 17:01 16:31 Influenza Screen (A ordered. [facility] EDCT 17:01 16:31 CORONAVIRUS+MR.LAB.BRZ ordered. [facility] 18:14 18:03 04/23/2020 18:03 Discharged to Home. Impression: Coronavirus infection, jd3 unspecified. Condition is Stable. Forms are Medication Reconciliation Form, Thank You Letter, Antibiotic Education, Prescription Opioid Use. Follow up: Emergency Department; When: As needed; Reason: Worsening of condition. Follow up: Private Physician; When: 2 - 3 days; Reason: Recheck today's complaints, Continuance of care, Re-evaluation by your physician. kb
[2020-04-23 18:19] VITALS: O2SAT 100
[2020-04-23 18:26] VITALS: BP 141/75; TEMP 97.8
== END 2020-04-23 18:14 | disposition home or self-care (01) ==
LOC: ER 16:15
DX: U07.1 COVID-19 (principal)
CPT/HCPCS: 0240U; 99283